=== PATIENT | female | born 1960 | race Caucasian/White ===

== ENCOUNTER → 2017-03-24 | Outpatient (CLI) | payer MEDICARE, OTHER ==
[~2017-03-24] MED LIST: /TIOT18INH INH; /WARF25TA OR; ANTI25TA; ASPI81CH PO; BABY81CH; CLON0.5T PO; COUM1TAB17 PO; CYCL10TA PO; EFFE75CA75 PO; HYDR-3713 PO; HYDR-3716 PO; IBUP200C PO; IBUP400T OR; IBUP800T23 PO; KLON0.5T PO; LASI80TA PO; LOPR50TA; NEUR300C; OMEP20TA7 PO; PANT40TA2 PO; PERC5TAB8 OR; PERCOCET PO; POTA10CA2; RANI300T PO; RANITIDINE PO; SPIR50TA2 PO; TOPA100T8 PO; TYL PO; TYLE167L PO; TYLE650T25 PO; VENL75TA2 PO; VENL75TA3 PO; VICO5TAB; VICODINES TAB PO; ZANT150T; ZOCO10TA PO; [UNRECOGNIZED DRUG - OTHER] INH; flexeril OR; ibuprofen PO; klor con PO; nitrostat SL
--- NOTE | 2017-03-24 15:11 | REP ---
REASON: Tobacco abuse. COMPARISON: CT chest angio 08/29/2009 which is the only prior. The examination was submitted with lung window technique only as per the protocol. There is a minimal somewhat curvilinear and patchy density in the inferior lingula. This is not nodular. There is a 2 mm sized left lower lobe nodule. No other abnormal nodules, masses, or opacities are present. IMPRESSION: Tiny nodule in the left lower lobe as described above. According to the revised Fleischner's Society criteria, this represents a category II nodule for which yearly screening CT of the chest is recommended. Pulmonary consultation is recommended at this time due to the positive finding as per the protocol. There is a minimal patchy density in the inferior lingula likely representing a small area of subsegmental atelectatic change or fibrosis. This too, can be followed in the recommended time span. Signed by Yaya Alvarado DO 03/24/2017 04:14 P
== END ==
LOC: M RAD 13:23
PROVIDERS: ATTEND Family Medicine
DX: Z12.31 Encounter for screening mammogram for malignant neoplasm of breast (principal); Z12.2 Encounter for screening for malignant neoplasm of respiratory organs; F17.210 Nicotine dependence, cigarettes, uncomplicated; R91.1 Solitary pulmonary nodule
CPT/HCPCS: G0202; G0297

== ENCOUNTER → 2017-03-24 | Outpatient (CLI) | payer MEDICARE, OTHER ==
--- NOTE | 2017-03-24 16:52 | REP ---
BILATERAL MAMMOGRAM: Bilateral mammography performed in the MLO and CC projections. Comparison is made with multiple prior exams, most recently 05/12/2012. Scattered fibroglandular elements appear essentially unchanged. Tiny calcifications are seen in the upper outer left breast anteriorly. Other course benign type calcifications are seen bilaterally. IMPRESSION: ACR 0 incomplete. New tiny calcifications in the upper outer aspect of the left breast anteriorly may be related to a skin lesion as they are fairly superficial in location on left MLO views. Recommend magnification tangential views to further evaluate. BI-RADS/ACR category 0 mammogram, incomplete. Additional imaging and/or prior images are needed before a final assessment can be assigned. This mammogram was interpreted with the aid of an FDA-approved computer-aided detection system. The patient states she had a clinical breast exam in 02/2017. The patient letter being requested is M0.
== END ==
LOC: M WHC 14:28
PROVIDERS: ATTEND Family Medicine
DX: Z12.31 Encounter for screening mammogram for malignant neoplasm of breast (principal); R92.8 Other abnormal and inconclusive findings on diagnostic imaging of breast

== ENCOUNTER → 2017-04-12 | Outpatient (CLI) | payer MEDICARE, OTHER ==
--- NOTE | 2017-04-12 11:49 | REP ---
Digital diagnostic left breast unilateral mammography with CAD: History: Screening mammography March 24, 2017 was BIRADS category 0 due to new microcalcifications in the upper outer aspect of the left breast. Comparison is also made with May 12, 2012 prior mammography. Findings: A skin calcification localization sequence of images was acquired in craniocaudal, rolled craniocaudal, and true MLO projection images with an opaque BB marker affixed to the skin at the site of the calcifications. Magnified focal spot compression CC, MLO and true MLO views confirm the presence of a new grouping of calcifications. These occupy a very tight cluster only 3 mm across and are felt to be somewhat coarse. Similar calcifications are visible in 2011 in a different location and subsequent images demonstrate course coalescing benign pattern. Impression: BIRADS category 2 benign left breast imaging. Coarse grouping of benign appearing calcifications identified. These are not in the dermis of but are not felt to be suspicious. Annual screening mammography recommended. BI-RADS/ACR category 2 mammogram. Benign finding(s). Routine annual screening mammography (for women over age 40). This mammogram was interpreted with the aid of an FDA-approved computer-aided detection system. The patient states she had a clinical breast exam in February 2017 The patient letter being requested is M1. Signed by Josh Woods MD 04/12/2017 01:09 P
== END ==
LOC: M RAD 09:49
PROVIDERS: ATTEND Family Medicine
DX: R92.1 Mammographic calcification found on diagnostic imaging of breast (principal)

== ENCOUNTER → 2017-04-28 | Outpatient (CLI) | payer MEDICARE, OTHER ==
[~2017-04-28] VITALS: Ht 162.6 cm; Wt 101.6 kg
[~2017-04-28] MED LIST changes: +BUPR150T5 PO; +CHAN0.5P2 PO; +FLUO10CA9 PO; +HYDR-3719 PO; +LIDOCAINE 2% INJ 100 MG/5 ML SDV (FOR ANES.) As Ordered ONE; +NS 1,000 ML IV ONE; +PROPOFOL 200 MG/20 ML VIAL As Ordered ONE; +TOPI50TA4 PO; +VENL75CA47 PO
--- NOTE | 2017-04-28 13:12 | ROOR ---
Patient Name: Estella Lindsay Procedure Date: 04/28/2017 12:59 PM Date of : 1960 Age: 57 Room: [facility], [facility]IN [facility] Gender: Female Note Status: Finalized Procedure: Upper GI endoscopy Indications: Heartburn Providers: Richi Allen MD Referring MD: Melonie Quiroga MD Requesting Provider: Medicines: Monitored Anesthesia Care Complications: No immediate complications. Procedure: Pre-Anesthesia Assessment: - The heart rate, respiratory rate, oxygen saturations, blood pressure, adequacy of pulmonary ventilation, and response to care were monitored throughout the procedure. The Endoscope was introduced through the mouth, and advanced to the second part of duodenum. The upper GI endoscopy was accomplished without difficulty. The patient tolerated the procedure well. Findings: The Z-line was regular and was found 40 cm from the incisors. No other significant abnormalities were identified in a careful examination of the stomach. The exam of the duodenum was otherwise normal. Impression: - Z-line regular, 40 cm from the incisors. - No specimens collected. - The examination was otherwise normal. Recommendation: - Patient has a contact number available for emergencies. The signs and symptoms of potential delayed complications were discussed with the patient. Return to normal activities tomorrow. Written discharge instructions were provided to the patient. - High fiber diet. - Discharge patient to home. - Follow an antireflux regimen. - Continue present medications. - Return to referring physician. - The findings and recommendations were discussed with the patient's family. Richi Allen MD Richi Allen MD 04/28/2017 1:11:44 PM This report has been signed electronically. Number of Addenda: 0 Note Initiated On: 04/28/2017 12:59 PM Estimated Blood Loss: Estimated blood loss: none.
--- NOTE | 2017-04-28 13:47 | ROOR ---
Patient Name: Estella Lindsay Procedure Date: 04/28/2017 1:00 PM Date of : 1960 Age: 57 Room: [facility] Gender: Female Note Status: Finalized Procedure: Total Colonoscopy to Cecum + Cold Snare Polypectomy Indications: Screening for colorectal malignant neoplasm Providers: Richi Allen MD Referring MD: Melonie Quiroga MD Requesting Provider: Medicines: Monitored Anesthesia Care Complications: No immediate complications. Procedure: Pre-Anesthesia Assessment: - The heart rate, respiratory rate, oxygen saturations, blood pressure, adequacy of pulmonary ventilation, and response to care were monitored throughout the procedure. The Colonoscope was introduced through the anus and advanced to the cecum, identified by appendiceal orifice and ileocecal valve. The colonoscopy was performed without difficulty. The patient tolerated the procedure well. The quality of the bowel preparation was excellent. Findings: The perianal and digital rectal examinations were normal. Non-bleeding internal hemorrhoids were found during retroflexion. The hemorrhoids were small and Grade I (internal hemorrhoids that do not prolapse). Multiple small and large-mouthed diverticula were found in the recto-sigmoid colon, sigmoid colon and descending colon. Two sessile polyps were found at 50 cm proximal to the anus. The polyps were medium in size. These polyps were removed with a cold snare. Resection and retrieval were complete. The exam was otherwise without abnormality on direct and retroflexion views. Impression: - Non-bleeding internal hemorrhoids. - Diverticulosis in the recto-sigmoid colon, in the sigmoid colon and in the descending colon. - Two medium polyps at 50 cm proximal to the anus, removed with a cold snare. Resected and retrieved. - The examination was otherwise normal on direct and retroflexion views. - The exam was otherwise normal to the cecum. Recommendation: - Patient has a contact number available for emergencies. The signs and symptoms of potential delayed complications were discussed with the patient. Return to normal activities tomorrow. Written discharge instructions were provided to the patient. - High fiber diet. - Discharge patient to home. - Continue present medications. - Await pathology results. - Telephone GI clinic for pathology results in 1 week. - Repeat colonoscopy for surveillance based on pathology results. - Return to referring physician. Richi Allen MD Richi Allen MD 04/28/2017 1:46:42 PM This report has been signed electronically. Number of Addenda: 0 Note Initiated On: 04/28/2017 1:00 PM Estimated Blood Loss: Estimated blood loss: none.
[2017-04-28 14:07] VITALS: BP 143/75
== END | disposition home or self-care (01) ==
LOC: M OPP 12:25
PROVIDERS: ATTEND Internal Medicine Gastroenterology
DX: Z12.11 Encounter for screening for malignant neoplasm of colon (principal); D12.5 Benign neoplasm of sigmoid colon; K57.30 Diverticulosis of large intestine without perforation or abscess without bleeding; K64.0 First degree hemorrhoids; Z86.010 Personal history of colon polyps; R12 Heartburn; R94.31 Abnormal electrocardiogram [ECG] [EKG]; K44.9 Diaphragmatic hernia without obstruction or gangrene; K82.9 Disease of gallbladder, unspecified; K21.9 Gastro-esophageal reflux disease without esophagitis; Z87.19 Personal history of other diseases of the digestive system; M19.90 Unspecified osteoarthritis, unspecified site; M54.9 Dorsalgia, unspecified; F41.9 Anxiety disorder, unspecified; G43.909 Migraine, unspecified, not intractable, without status migrainosus; Z78.0 Asymptomatic menopausal state; J44.9 Chronic obstructive pulmonary disease, unspecified; G47.30 Sleep apnea, unspecified; R32 Unspecified urinary incontinence; F17.210 Nicotine dependence, cigarettes, uncomplicated; Z88.1 Allergy status to other antibiotic agents; Z91.041 Radiographic dye allergy status; Z88.3 Allergy status to other anti-infective agents; Z91.013 Allergy to seafood; Z79.899 Other long term (current) drug therapy

== ENCOUNTER → 2017-05-05 | Outpatient (REF) | payer MEDICARE, OTHER ==
[~2017-05-05] MED LIST changes: +IBUP1TAB7 PO; -IBUP200C PO; +IBUP200C10 PO; -IBUP800T23 PO; -LIDOCAINE 2% INJ 100 MG/5 ML SDV (FOR ANES.) As Ordered ONE; -NS 1,000 ML IV ONE; -PROPOFOL 200 MG/20 ML VIAL As Ordered ONE; +TOPA100T12 PO; -TOPA100T8 PO; -TOPI50TA4 PO; +TOPI50TA9 PO
[2017-05-05 16:20] LABS: ALBUMIN 3.4 GM/DL (3.2-5.2); ALKALINE PHOSPHATASE 93 U/L (45-117); ALT/SGPT 25 U/L (12-78); ANION GAP 8 MEQ/L (8-16); AST/SGOT 18 U/L (15-37); BILIRUBIN,TOTAL 0.5 MG/DL (0.2-1.0); BLOOD UREA NITROGEN 9 MG/DL (7-18); CALCIUM LEVEL 8.8 MG/DL (8.5-10.1); CARBON DIOXIDE LEVEL 28 MEQ/L (21-32); CHLORIDE LEVEL 102 MEQ/L (98-107); CHOLESTEROL LEVEL 230 MG/DL (<200); CREATININE FOR GFR 0.81 MG/DL (0.55-1.02); GLOMERULAR FILTRATION RATE > 60.0 (>51); GLUCOSE, FASTING 140 MG/DL (70-105); POTASSIUM SERUM 3.2 MEQ/L (3.5-5.1); SODIUM LEVEL 138 MEQ/L (136-145); TOTAL PROTEIN 6.8 GM/DL (6.4-8.2); TRIGLYCERIDES LEVEL 210 MG/DL (<150)
== END ==
LOC: M LABDRAW1 15:47
PROVIDERS: ATTEND Family Medicine
DX: E66.01 Morbid (severe) obesity due to excess calories (principal); R53.83 Other fatigue; Z79.899 Other long term (current) drug therapy
CPT/HCPCS: 36415; 80053; 80061; 82306; 84443; G0463

== ENCOUNTER → 2017-05-13 | Outpatient (REF) | payer MEDICARE, OTHER ==
[~2017-05-13] MED LIST changes: -IBUP1TAB7 PO; +IBUP200C PO; -IBUP200C10 PO; +IBUP800T23 PO; -TOPA100T12 PO; +TOPA100T8 PO; +TOPI50TA4 PO; -TOPI50TA9 PO
[2017-05-13 16:02] LABS: BASO # 0.1 K/mm3 (0.0-0.2); BASO % 0.6 % (0.0-1.0); EOS # 0.1 K/mm3 (0.0-0.50); EOS % 1.1 % (0.0-3.0); LARGE UNSTAINED CELL # 0.1 K/mm3 (0.0-0.4); LARGE UNSTAINED CELL % 1.1 % (0.0-4.0); LYMPH % 36.2 % (24.0-44.0); MEAN CORPUSCULAR HEMOGLOBIN 32.1 pg (27.0-33.0); MEAN CORPUSCULAR VOLUME 94.5 fl (80.0-96.0); MONO # 0.5 K/mm3 (0.0-0.8); MONO % 4.3 % (0.0-5.0); NEUTROPHILS % 56.6 % (36.0-66.0); PLATELET COUNT, AUTOMATED 197 k/mm3 (150-450); RED CELL DISTRIBUTION WIDTH 13.6 % (11.5-14.5); WHITE BLOOD COUNT 10.6 K/mm3 (4.0-10.0)
== END ==
LOC: M SFHCPLAZ 13:35
PROVIDERS: ATTEND Family Medicine
DX: D72.829 Elevated white blood cell count, unspecified (principal); R73.09 Other abnormal glucose

== ENCOUNTER → 2017-05-20 | Outpatient (REF) | payer MEDICARE, OTHER ==
[~2017-05-20] MED LIST changes: +IBUP1TAB7 PO; -IBUP200C PO; +IBUP200C10 PO; -IBUP800T23 PO; +TOPA100T12 PO; -TOPA100T8 PO; -TOPI50TA4 PO; +TOPI50TA9 PO
== END ==
LOC: M SFHCPLAZ 17:25
PROVIDERS: ATTEND Family Medicine
DX: N30.01 Acute cystitis with hematuria (principal)
CPT/HCPCS: 81002; 87086; G0463

== ENCOUNTER → 2017-07-15 | Outpatient (REF) | payer MEDICARE, OTHER ==
[2017-07-15 12:17] LABS: BASO # 0.1 K/mm3 (0.0-0.2); BASO % 0.7 % (0.0-1.0); EOS # 0.1 K/mm3 (0.0-0.50); EOS % 0.7 % (0.0-3.0); LARGE UNSTAINED CELL # 0.1 K/mm3 (0.0-0.4); LYMPH # 2.5 K/mm3 (1.5-4.5); MEAN CORPUSCULAR HEMOGLOBIN 31.6 pg (27.0-33.0); MEAN CORPUSCULAR HGB CONC 33.1 g/dl (32.0-36.5); MEAN CORPUSCULAR VOLUME 95.4 fl (80.0-96.0); MONO # 0.4 K/mm3 (0.0-0.8); MONO % 5.1 % (0.0-5.0); NEUTROPHILS # 5.4 K/mm3 (1.8-7.7); NEUTROPHILS % 63.5 % (36.0-66.0); PLATELET COUNT, AUTOMATED 226 k/mm3 (150-450); RED CELL DISTRIBUTION WIDTH 12.9 % (11.5-14.5); WHITE BLOOD COUNT 8.5 K/mm3 (4.0-10.0)
== END ==
LOC: M SFHCPLAZ 09:23
PROVIDERS: ATTEND Family Medicine
DX: D72.829 Elevated white blood cell count, unspecified (principal)

== ENCOUNTER → 2017-08-23 | Outpatient (REF) | payer MEDICARE, OTHER | LOC: M SFHCPLAZ 15:14 | PROVIDERS: ATTEND Family Medicine | DX: E11.9 Type 2 diabetes mellitus without complications (principal) | CPT/HCPCS: 82043; 83036; G0463 ==

== ENCOUNTER → 2017-11-29 | Outpatient (REF) | payer MEDICARE, OTHER ==
[2017-11-29 18:36] LABS: ANION GAP 6 MEQ/L (8-16); BLOOD UREA NITROGEN 10 MG/DL (7-18); CALCIUM LEVEL 8.9 MG/DL (8.5-10.1); CARBON DIOXIDE LEVEL 29 MEQ/L (21-32); CHLORIDE LEVEL 108 MEQ/L (98-107); CREATININE FOR GFR 0.73 MG/DL (0.55-1.02); GLOMERULAR FILTRATION RATE > 60.0 (>51); GLUCOSE, FASTING 110 MG/DL (70-105); POTASSIUM SERUM 4.1 MEQ/L (3.5-5.1); SODIUM LEVEL 143 MEQ/L (136-145)
[2017-11-29 20:04] LABS: ESTIMATED AVERAGE GLUCOSE 128 MG/DL (60-110); HEMOGLOBIN A1c 6.1 %
== END ==
LOC: M SFHCPLAZ 14:37
DX: E11.9 Type 2 diabetes mellitus without complications (principal); E87.6 Hypokalemia
CPT/HCPCS: 83036

== ENCOUNTER → 2018-02-22 | Outpatient (CLI) | payer MEDICARE, OTHER | LOC: M RAD 07:01 | DX: R10.9 Unspecified abdominal pain (principal); Z90.49 Acquired absence of other specified parts of digestive tract; Z90.710 Acquired absence of both cervix and uterus; R93.49 Abnormal radiologic findings on diagnostic imaging of other urinary organs | CPT/HCPCS: 74176 ==

== ENCOUNTER → 2018-04-28 | Outpatient (CLI) | payer MEDICARE, OTHER | LOC: M RAD 09:54 | DX: Z12.31 Encounter for screening mammogram for malignant neoplasm of breast (principal) | CPT/HCPCS: 77067 ==

== ENCOUNTER → 2018-05-30 | Outpatient (REF) | payer MEDICARE, OTHER ==
[2018-05-30 19:15] LABS: ANION GAP 9 MEQ/L (8-16); BLOOD UREA NITROGEN 10 MG/DL (7-18); CARBON DIOXIDE LEVEL 29 MEQ/L (21-32); CHLORIDE LEVEL 104 MEQ/L (98-107); CREATININE FOR GFR 0.85 MG/DL (0.55-1.30); GLOMERULAR FILTRATION RATE > 60.0 (>51); GLUCOSE, FASTING 123 MG/DL (70-100); POTASSIUM SERUM 3.9 MEQ/L (3.5-5.1); SODIUM LEVEL 142 MEQ/L (136-145)
[2018-05-30 19:21] LABS: ESTIMATED AVERAGE GLUCOSE 146 MG/DL (60-110); HEMOGLOBIN A1c 6.7 %
[2018-05-30 19:55] LABS: CREATININE, URINE 81.4 MG/DL; MALB URINE SIEMENS 5.3 MG/L; MAU/CREAT RATIO 6.5 MCG/MG (0.0-30.0)
== END ==
LOC: M SFHCPLAZ 15:47
DX: E11.9 Type 2 diabetes mellitus without complications (principal); E87.6 Hypokalemia
CPT/HCPCS: 83036

== ENCOUNTER → 2018-11-30 | Outpatient (REF) | payer MEDICARE, OTHER ==
[~2018-11-30] MED LIST changes: -CHAN0.5P2 PO; +CHAN0.5P3 PO; -CLON0.5T PO; +CLON0.5T8 PO; +EFFE75CA2 PO; -EFFE75CA75 PO; -IBUP200C10 PO; +IBUP200C25 PO; -PANT40TA2 PO; +PANT40TA3 PO; -SPIR50TA2 PO; +SPIR50TA4 PO
[2018-11-30 13:40] LABS: ALBUMIN 3.1 GM/DL (3.2-5.2); ALT/SGPT 19 U/L (12-78); BILIRUBIN,TOTAL 0.3 MG/DL (0.2-1.0); BLOOD UREA NITROGEN 12 MG/DL (7-18); CALCIUM LEVEL 8.4 MG/DL (8.5-10.1); CARBON DIOXIDE LEVEL 25 MEQ/L (21-32); CHLORIDE LEVEL 105 MEQ/L (98-107); CREATININE FOR GFR 0.83 MG/DL (0.55-1.30); GLOMERULAR FILTRATION RATE > 60.0 (>51); GLUCOSE, FASTING 200 MG/DL (70-100); POTASSIUM SERUM 3.2 MEQ/L (3.5-5.1); SODIUM LEVEL 141 MEQ/L (136-145); TOTAL PROTEIN 6.7 GM/DL (6.4-8.2)
[2018-11-30 13:49] LABS: TOTAL 25(OH) VITAMIN D 58.4 NG/ML (30.0-100.0)
[2018-11-30 14:21] LABS: HEMOGLOBIN A1c 7.8 %
== END ==
LOC: M SFHCPLAZ 11:10
PROVIDERS: ATTEND Family Medicine
DX: E11.9 Type 2 diabetes mellitus without complications (principal); E66.01 Morbid (severe) obesity due to excess calories; E87.6 Hypokalemia; E55.9 Vitamin D deficiency, unspecified

== ENCOUNTER → 2018-11-30 | Outpatient (REF) | payer MEDICARE, OTHER ==
[2018-11-30 13:10] LABS: BASO # 0.1 10^3/uL (0.0-0.2); BASO % 0.6 % (0.0-1.0); EOS # 0.1 10^3/uL (0.0-0.50); EOS % 0.9 % (0.0-3.0); HEMATOCRIT 42.4 % (36.0-47.0); LYMPH # 2.7 10^3/uL (1.5-4.5); LYMPH % 29.7 % (24.0-44.0); MEAN CORPUSCULAR HEMOGLOBIN 30.6 pg (27.0-33.0); MEAN CORPUSCULAR VOLUME 92.8 fl (80.0-96.0); MONO # 0.5 10^3/uL (0.0-0.8); MONO % 5.8 % (0.0-5.0); NEUTROPHILS # 5.8 10^3/uL (1.8-7.7); NEUTROPHILS % 62.5 % (36.0-66.0); PLATELET COUNT, AUTOMATED 218 10^3/uL (150-450); RED BLOOD COUNT 4.57 10^6/uL (4.00-5.40); WHITE BLOOD COUNT 9.2 10^3/uL (4.0-10.0)
[2018-11-30 13:41] LABS: ALBUMIN 3.1 GM/DL (3.2-5.2); ALT/SGPT 22 U/L (12-78); BILIRUBIN,TOTAL 0.3 MG/DL (0.2-1.0); BLOOD UREA NITROGEN 11 MG/DL (7-18); CALCIUM LEVEL 8.4 MG/DL (8.5-10.1); CARBON DIOXIDE LEVEL 24 MEQ/L (21-32); CHLORIDE LEVEL 105 MEQ/L (98-107); CREATININE FOR GFR 0.84 MG/DL (0.55-1.30); GLOMERULAR FILTRATION RATE > 60.0 (>51); GLUCOSE, FASTING 203 MG/DL (70-100); POTASSIUM SERUM 3.1 MEQ/L (3.5-5.1); SODIUM LEVEL 142 MEQ/L (136-145); TOTAL PROTEIN 6.7 GM/DL (6.4-8.2)
== END ==
LOC: M LABDRAWP 11:19
PROVIDERS: ATTEND Physician Assistant
DX: N32.81 Overactive bladder (principal); E11.9 Type 2 diabetes mellitus without complications; E55.9 Vitamin D deficiency, unspecified; F17.200 Nicotine dependence, unspecified, uncomplicated
CPT/HCPCS: 36415; 80053; 82306; 83036; 85025; 99406; G0463

== ENCOUNTER → 2018-12-19 | Outpatient (REF) | payer MEDICARE, OTHER ==
[~2018-12-19] MED LIST changes: +ASPI1TAB PO; +METF500T4 PO; +POTA10TA16 PO; +VITA50005 PO
[2018-12-19 14:14] LABS: BLOOD UREA NITROGEN 10 MG/DL (7-18); CALCIUM LEVEL 8.7 MG/DL (8.5-10.1); CARBON DIOXIDE LEVEL 24 MEQ/L (21-32); CHLORIDE LEVEL 105 MEQ/L (98-107); CREATININE FOR GFR 0.84 MG/DL (0.55-1.30); GLOMERULAR FILTRATION RATE > 60.0 (>51); GLUCOSE, FASTING 204 MG/DL (70-100); POTASSIUM SERUM 3.9 MEQ/L (3.5-5.1); SODIUM LEVEL 139 MEQ/L (136-145)
== END ==
LOC: M SFHCPLAZ 11:55
PROVIDERS: ATTEND Family Medicine
DX: E87.6 Hypokalemia (principal)
CPT/HCPCS: 36415; 80048; G0463

== ENCOUNTER 2019-01-17 11:10 | Day surgery (SDC) | payer MEDICARE, OTHER ==
[~2019-01-17] VITALS: Ht 163.8 cm; Wt 100.7 kg
[~2019-01-17 11:10] MED LIST changes: +BACITRACIN OINT 30GM As Ordered ONE; +EPINEPHrine INJ 1 MG/ML 1ML AMP As Ordered ONE; +LIDOCAINE W/EPINEPHRINE 1% 20ML VIAL As Ordered ONE; +METHYLENE BLUE 0.5% (5MG/ML) 10 ML AMP (PROVAYBLUE)(Q9968 PER 1MG) As Ordered ONE
[2019-01-17] MEDS ORDERED: LR 1,000 ML IV ONE (12:00)
[2019-01-17] MEDS ORDERED: MIDAZOLAM INJ 2 MG/2 ML VIAL (J2250) As Ordered ONE (14:08)
[2019-01-17] MEDS ORDERED: PROPOFOL 200 MG/20 ML VIAL As Ordered ONE (14:08)
[2019-01-17] MEDS ORDERED: fentaNYL 100 MCG/2 ML INJECTION (J3010) As Ordered ONE (14:08)
[2019-01-17 14:55] VITALS: BP 112/60
[2019-01-17] MEDS ORDERED: fentaNYL 100 MCG/2 ML INJECTION (J3010) IV PRN (15:00)
[2019-01-17] MEDS ORDERED: ONDANSETRON 4MG/2ML VIAL (J2405) IV PRN (15:00)
[2019-01-17] MEDS ORDERED: PERCOCET 5MG/325MG TAB PO PRN (15:00)
[2019-01-17] MEDS ORDERED: LR 1,000 ML IV SCH (15:00)
--- NOTE | 2019-02-14 00:29 | RO ---
DATE OF PROCEDURE: 01/17/2019 PREPROCEDURE DIAGNOSIS: Nasal vestibular lesion. POSTPROCEDURE DIAGNOSIS: Nasal vestibular lesion, right-sided. PROCEDURE: SURGEON: Tolu Espino MD LEAD ELECTRICAL ENGINEER: ANESTHESIA: INDICATIONS: This is a 58-year-old who has had a nonhealing ulcer of the right nasal vestibule along the floor of the nose. It had failed to heal with conservative measures. It was elected to excise the area for tissue diagnosis as well as therapy. DESCRIPTION OF PROCEDURE: Satisfactory intravenous sedation was given. The nose was prepped and draped and 0.50% lidocaine with 1:100,000 epinephrine used to inject into the nasal vestibular area along the floor of the nose. With nasal speculum for exposure, a #15 blade was used to make an elliptical incision around a fissure-type lesion that seemed to be both on the skin of the vestibule and the mucosa. Suction cautery was used for hemostasis, and then two #3-0 chromic sutures were used to close the elliptical incision which had been made. The tissue specimen was sent for permanent section. Ointment was applied to the nostril, and she was then awakened, extubated and sent to recovery in satisfactory condition.
== END 2019-01-17 15:01 | disposition home or self-care (01) ==
LOC: M SDC 11:10
PROVIDERS: ATTEND Specialist
DX: J34.89 Other specified disorders of nose and nasal sinuses (principal); E11.9 Type 2 diabetes mellitus without complications; K57.32 Diverticulitis of large intestine without perforation or abscess without bleeding; M47.816 Spondylosis without myelopathy or radiculopathy, lumbar region; G47.33 Obstructive sleep apnea (adult) (pediatric); R94.31 Abnormal electrocardiogram [ECG] [EKG]; R07.9 Chest pain, unspecified; E78.00 Pure hypercholesterolemia, unspecified; K44.9 Diaphragmatic hernia without obstruction or gangrene; K21.9 Gastro-esophageal reflux disease without esophagitis; M15.0 Primary generalized (osteo)arthritis; R06.02 Shortness of breath; F41.0 Panic disorder [episodic paroxysmal anxiety]; F32.9 Major depressive disorder, single episode, unspecified; G43.909 Migraine, unspecified, not intractable, without status migrainosus; J44.9 Chronic obstructive pulmonary disease, unspecified; R32 Unspecified urinary incontinence; T88.59XD Other complications of anesthesia, subsequent encounter; Z88.1 Allergy status to other antibiotic agents; Z91.041 Radiographic dye allergy status; Z79.899 Other long term (current) drug therapy; Z79.82 Long term (current) use of aspirin; Z79.84 Long term (current) use of oral hypoglycemic drugs; Z72.0 Tobacco use; Z86.010 Personal history of colon polyps; Z86.14 Personal history of Methicillin resistant Staphylococcus aureus infection; Z90.710 Acquired absence of both cervix and uterus; Z98.51 Tubal ligation status; Z96.653 Presence of artificial knee joint, bilateral
CPT/HCPCS: 30117; 88305; J2250; J3010

== ENCOUNTER → 2019-01-24 | Outpatient (REF) | payer MEDICARE, OTHER ==
[~2019-01-24] MED LIST changes: -BACITRACIN OINT 30GM As Ordered ONE; -EPINEPHrine INJ 1 MG/ML 1ML AMP As Ordered ONE; -LIDOCAINE W/EPINEPHRINE 1% 20ML VIAL As Ordered ONE; -METHYLENE BLUE 0.5% (5MG/ML) 10 ML AMP (PROVAYBLUE)(Q9968 PER 1MG) As Ordered ONE
[2019-01-24 16:11] LABS: POTASSIUM RANDOM URINE 59.4 MEQ/L
[2019-01-24 16:14] LABS: BLOOD UREA NITROGEN 14 MG/DL (7-18); CALCIUM LEVEL 8.7 MG/DL (8.5-10.1); CARBON DIOXIDE LEVEL 29 MEQ/L (21-32); CHLORIDE LEVEL 103 MEQ/L (98-107); CREATININE FOR GFR 0.72 MG/DL (0.55-1.30); GLOMERULAR FILTRATION RATE > 60.0 (>51); GLUCOSE, FASTING 139 MG/DL (70-100); POTASSIUM SERUM 3.8 MEQ/L (3.5-5.1); SODIUM LEVEL 140 MEQ/L (136-145)
== END ==
LOC: M SFHCPLAZ 13:42
PROVIDERS: ATTEND Family Medicine
DX: E87.6 Hypokalemia (principal)
CPT/HCPCS: 36415; 80048; 82570; 84133; G0463

== ENCOUNTER → 2019-01-27 | Outpatient (REF) | payer MEDICARE, OTHER | LOC: M SFHCPLAZ 15:03 | PROVIDERS: ATTEND Family Medicine | DX: Z53.9 Procedure and treatment not carried out, unspecified reason (principal); E87.6 Hypokalemia ==

== ENCOUNTER → 2019-03-15 | Outpatient (CLI) | payer MEDICARE, OTHER ==
[~2019-03-15] MED LIST changes: -/TIOT18INH INH; -/WARF25TA OR; -ASPI1TAB PO; -ASPI81CH PO; +ASPI81CH49 PO; +ASPI81TA26 PO; +COUM1TAB18 OR; +SPIR1CAP INH; +VENL-65 PO; -VENL75TA3 PO
== END ==
LOC: M LAB 15:04
PROVIDERS: ATTEND Family Medicine
DX: E11.9 Type 2 diabetes mellitus without complications (principal); E87.6 Hypokalemia

== ENCOUNTER → 2019-03-15 | Outpatient (REF) | payer MEDICARE, OTHER ==
[2019-03-21 14:13] LABS: HPV HYBRID CAPTURE II Negative (Negative)
== END ==
LOC: M LAB REF 13:29
PROVIDERS: ATTEND Obstetrics & Gynecology
DX: Z12.72 Encounter for screening for malignant neoplasm of vagina (principal)
CPT/HCPCS: 87624; G0123

== ENCOUNTER → 2019-04-21 | Outpatient (CLI) | payer MEDICARE, OTHER ==
--- NOTE | 2019-04-21 15:01 | REP ---
Clinical: Pelvic and perineal pain . Technique: Transabdominal pelvic ultrasound followed by transvaginal examination for better evaluation of the endometrium and adnexa with color Doppler evaluation of the ovaries. Findings: Bladder is unremarkable and measures 8.6 x 6.3 x 4.5 cm . Evidence of prior hysterectomy. Bilateral ovaries are normal in appearance and vascularity without evidence for torsion. Right ovary measures 2.7 x 1.1 x 1.3 cm ; R I = 0.66 . Left ovary measures 2.2 x 1.7 x 1.4 cm with 8 mm simple cyst ; R I = 0.52 . No pelvic fluid or adnexal mass lesion . Impression: 1. Evidence of prior hysterectomy without free fluid or mass lesion in the pelvis. 2. Ovaries are relatively normal and without torsion. Small calcifications are chronic and insignificant. A 8 mm simple cyst noted in the left ovary Electronically Signed by Kevin Boss MD 04/21/2019 02:52 P
== END ==
LOC: M RAD 12:31
PROVIDERS: ATTEND Obstetrics & Gynecology
DX: R10.2 Pelvic and perineal pain (principal); N83.201 Unspecified ovarian cyst, right side; Z90.710 Acquired absence of both cervix and uterus

== ENCOUNTER → 2019-05-23 | Outpatient (REF) | payer MEDICARE, OTHER ==
[2019-05-23 18:40] LABS: ALBUMIN 3.3 GM/DL (3.2-5.2); ALT/SGPT 25 U/L (12-78); BILIRUBIN,TOTAL 0.2 MG/DL (0.2-1.0); BLOOD UREA NITROGEN 10 MG/DL (7-18); CALCIUM LEVEL 9.2 MG/DL (8.5-10.1); CARBON DIOXIDE LEVEL 27 MEQ/L (21-32); CHLORIDE LEVEL 107 MEQ/L (98-107); CREATININE FOR GFR 0.86 MG/DL (0.55-1.30); GLOMERULAR FILTRATION RATE > 60.0 (>51); GLUCOSE, FASTING 125 MG/DL (70-100); POTASSIUM SERUM 3.6 MEQ/L (3.5-5.1); SODIUM LEVEL 141 MEQ/L (136-145); TOTAL PROTEIN 7.4 GM/DL (6.4-8.2)
[2019-05-23 19:11] LABS: BASO # 0.1 10^3/uL (0.0-0.2); BASO % 0.6 % (0.0-1.0); EOS # 0.1 10^3/uL (0.0-0.50); EOS % 0.9 % (0.0-3.0); HEMOGLOBIN 14.6 g/dl (12.0-15.5); LYMPH # 3.3 10^3/uL (1.5-4.5); MEAN CORPUSCULAR HEMOGLOBIN 31.5 pg (27.0-33.0); MEAN CORPUSCULAR HGB CONC 31.7 g/dl (32.0-36.5); MEAN CORPUSCULAR VOLUME 99.1 fl (80.0-96.0); MONO # 0.8 10^3/uL (0.0-0.8); NEUTROPHILS # 8.4 10^3/uL (1.8-7.7); NEUTROPHILS % 65.6 % (36.0-66.0); PLATELET COUNT, AUTOMATED 250 10^3/uL (150-450); RED BLOOD COUNT 4.64 10^6/uL (4.00-5.40); WHITE BLOOD COUNT 12.8 10^3/uL (4.0-10.0)
== END ==
LOC: M SFHCPLAZ 15:22
PROVIDERS: ATTEND Family Medicine
DX: R10.32 Left lower quadrant pain (principal)

== ENCOUNTER → 2019-05-29 | Outpatient (CLI) | payer MEDICARE, OTHER ==
--- NOTE | 2019-05-29 13:31 | REPMRS ---
Patient History The patient states she has not had a clinical breast exam in over a year. No known family history of cancer. Benign lumpectomy of the left breast. 3D TOMOSYNTHESIS WAS PERFORMED. [facility] Digital Mammo Screening Bilat: May 29, 2019 - Exam #: [id number] Bilateral CC and MLO view(s) were taken. Technologist: Alexandrea Salvador, Technologist Prior study comparison: April 28, 2018, bilateral digital mammo screening bilat performed at [facility]. April 12, 2017, left breast digital mammo diagnostic unilateral performed at [facility]. FINDINGS: There are scattered fibroglandular densities. There has been no change in the appearance of the mammogram from the prior studies. There is a mild amount of residual fibroglandular tissue which is fairly symmetric. There is no interval development of dominant mass, architectural distortion, or clustered microcalcification suggestive of malignancy. Assessment: BI-RADS/ACR category 1 mammogram. Negative Mammogram. Recommendation Routine screening mammogram in 1 year (for women over age 40). This mammogram was interpreted with the aid of an FDA-approved computer-aided dectection system. Electronically Signed By: Andrey Farooq MD 05/29/19 [id number]
--- NOTE | 2019-05-29 19:37 | REP ---
LOW DOSE LUNG SCREENING CT: Low dose lung screening CT performed in the axial plane. No suspicious nodule is seen bilaterally. Linear fibrotic changes are seen in the left upper lobe. No consolidation is seen. Heart is not significantly enlarged. There are degenerative changes of the spine. IMPRESSION: Lung RADS category 1 negative low dose lung screening CT. Followup is recommended in one year. Electronically Signed by Andrey Farooq MD 05/30/2019 11:14 A
== END ==
LOC: M RAD 12:43
PROVIDERS: ATTEND Family Medicine
DX: Z12.31 Encounter for screening mammogram for malignant neoplasm of breast (principal); F17.210 Nicotine dependence, cigarettes, uncomplicated
CPT/HCPCS: 77063; 77067; G0297

== ENCOUNTER → 2019-05-30 | Outpatient (CLI) | payer MEDICARE, OTHER ==
[~2019-05-30] MED LIST changes: +GASTROGRAFIN SOLUTION 30ML (Q9963) As Ordered ONE; +ISOVUE-370 76% 100ML VIAL (Q9967) As Ordered ONE
--- NOTE | 2019-05-30 19:50 | REP ---
CT abdomen and pelvis with IV and oral contrast: History: Left lower quadrant pain. Comparison CT study February 22, 2018. CT contrast dose: 100 ml of intravenous Isovue [address] findings: Preliminary digital leather products supervisor radiograph shows right upper quadrant and right lower quadrant surgical clips. The patient gives a history of appendectomy and cholecystectomy. Bowel gas pattern is normal. There is mild linear fibrosis in the left lower lobe. Lung bases are otherwise clear. There is fatty infiltration of the liver with no focal liver lesions seen. The spleen is normal in size and homogeneous in texture. The left adrenal gland is diffusely hypertrophied. Remains adreniform shape and is unchanged from the February 22, 2018 study. It has relatively low density. This may be benign hyperplasia versus adenoma. There is less prominent similar stable changes in the right adrenal gland. No pancreatic abnormality is observed. No retroperitoneal mass or adenopathy is seen. There are scattered normal-sized stable periaortic lymph nodes. The kidneys enhance symmetrically and are morphologically intact. Small and large intestinal bowel loops are unremarkable in the abdomen and pelvis. No abdominal wall defect is seen. The uterus is surgically absent. There are calcifications along the posterior wall of the urinary bladder and at its base which appear to be outside of the urinary bladder. Indeed these are unchanged from the comparison CT study February 22, 2018. No bony destructive lesion is seen. Impression: No acute intra-abdominal abnormality. Post cholecystectomy and hysterectomy. Stable left adrenal hyperplasia. Fatty infiltration of the liver. Electronically Signed by Josh Woods MD 05/30/2019 08:13 P
== END ==
LOC: M RAD 13:47
PROVIDERS: ATTEND Family Medicine
DX: R10.32 Left lower quadrant pain (principal); K76.0 Fatty (change of) liver, not elsewhere classified; E27.8 Other specified disorders of adrenal gland
CPT/HCPCS: 74177; Q9963; Q9967

== ENCOUNTER → 2019-06-05 | Outpatient (CLI) | payer MEDICARE, OTHER ==
[~2019-06-05] MED LIST changes: +CLON0.5T2 PO; -CLON0.5T8 PO; -GASTROGRAFIN SOLUTION 30ML (Q9963) As Ordered ONE; -ISOVUE-370 76% 100ML VIAL (Q9967) As Ordered ONE; +METF-791 PO; -METF500T4 PO
[2019-06-05 18:18] LABS: BASO # 0.1 10^3/uL (0.0-0.2); BASO % 0.6 % (0.0-1.0); EOS # 0.1 10^3/uL (0.0-0.50); EOS % 0.6 % (0.0-3.0); HEMATOCRIT 46.1 % (36.0-47.0); HEMOGLOBIN 14.8 g/dl (12.0-15.5); LYMPH # 3.2 10^3/uL (1.5-4.5); LYMPH % 31.9 % (24.0-44.0); MEAN CORPUSCULAR HEMOGLOBIN 31.6 pg (27.0-33.0); MEAN CORPUSCULAR HGB CONC 32.1 g/dl (32.0-36.5); MEAN CORPUSCULAR VOLUME 98.5 fl (80.0-96.0); MONO # 0.6 10^3/uL (0.0-0.8); NEUTROPHILS # 6.1 10^3/uL (1.8-7.7); NEUTROPHILS % 60.3 % (36.0-66.0); PLATELET COUNT, AUTOMATED 214 10^3/uL (150-450); RED BLOOD COUNT 4.68 10^6/uL (4.00-5.40); WHITE BLOOD COUNT 10.2 10^3/uL (4.0-10.0)
== END ==
LOC: M LAB 17:23
PROVIDERS: ATTEND Family Medicine
DX: D72.829 Elevated white blood cell count, unspecified (principal)

== ENCOUNTER 2019-07-25 15:06 | Inpatient (IN) | payer MEDICARE, OTHER ==
[~2019-07-25] VITALS: Ht 162.6 cm; Wt 101.7 kg
[~2019-07-25 15:06] MED LIST changes: -CLON0.5T2 PO; +CLON0.5T8 PO; -METF-791 PO; +METF500T4 PO
--- NOTE | 2019-07-25 16:36 | REP ---
Clinical: Trauma . Comparison: 12/13/2014 . Findings: The ventricles, sulci, and cisterns are normal in position and appearance. Farooq-white differentiation is maintained. No acute intracranial hemorrhage, mass/mass effect, pathology or trauma/injury. No evidence for acute infarction. No extra-axial fluid collection. Calvarium is intact. Paranasal sinuses and mastoid air cells are clear. Impression: Normal noncontrast head CT. No evidence for acute intracranial pathology or trauma/injury. Electronically Signed by Kevin Boss MD 07/25/2019 04:28 P
--- NOTE | 2019-07-25 16:38 | REP ---
Clinical: Trauma . Technique: Axial noncontrast images from the skull base to the thoracic inlet with coronal and sagittal re-formations Findings: Normal alignment is maintained. Moderate multilevel degenerative disc osteophyte complexes are appreciated. Cervical vertebral bodies including transverse processes and spinous processes are intact and there is no evidence for acute fracture / compression injury or subluxation. Spinal canal is patent. Posterior elements are intact. Paravertebral soft tissues are normal. Impression: 1. Moderate multilevel degenerative spondylosis and straightening of normal lordosis. 2. No evidence for acute pathology or trauma/injury. Electronically Signed by Kevin Boss MD 07/25/2019 04:30 P
--- NOTE | 2019-07-25 16:59 | REP ---
RIGHT KNEE, FOUR VIEWS: Four views of the right knee are performed. There is no acute fracture or dislocation. Total knee prosthesis in place and in good position with no abnormal adjacent lucency in the bone. IMPRESSION: No acute fracture or dislocation. Electronically Signed by Andrey Farooq MD 07/25/2019 05:00 P
--- NOTE | 2019-07-25 17:01 | REP ---
CHEST, SINGLE VIEW: Single view of the chest is performed. There is no acute infiltrate or pulmonary edema. There is minor bibasilar fibroatelectatic change, stable, compared to the prior study 12/03/2015. The heart is not significantly enlarged. Mediastinal silhouette is unchanged. There are degenerative changes of the spine. IMPRESSION: No acute infiltrate. Electronically Signed by Andrey Farooq MD 07/26/2019 09:52 A
[2019-07-25 17:10] LABS: BASO # 0.1 10^3/uL (0.0-0.2); BASO % 0.5 % (0.0-1.0); EOS % 0.2 % (0.0-3.0); HEMATOCRIT 46.4 % (36.0-47.0); HEMOGLOBIN 15.1 g/dl (12.0-15.5); LYMPH # 3.5 10^3/uL (1.5-5.0); LYMPH % 22.6 % (24.0-44.0); MEAN CORPUSCULAR HEMOGLOBIN 30.6 pg (27.0-33.0); MEAN CORPUSCULAR HGB CONC 32.5 g/dl (32.0-36.5); MEAN CORPUSCULAR VOLUME 94.1 fl (80.0-96.0); MONO # 0.8 10^3/uL (0.0-0.8); MONO % 5.1 % (0.0-5.0); PLATELET COUNT, AUTOMATED 230 10^3/uL (150-450); RED BLOOD COUNT 4.93 10^6/uL (4.00-5.40); WHITE BLOOD COUNT 15.6 10^3/uL (4.0-10.0)
[2019-07-25 17:37] LABS: BLOOD UREA NITROGEN 8 MG/DL (7-18); CALCIUM LEVEL 9.2 MG/DL (8.5-10.1); CARBON DIOXIDE LEVEL 27 MEQ/L (21-32); CHLORIDE LEVEL 106 MEQ/L (98-107); CK-MB VALUE MASS < 1.0 NG/ML (<3.6); CPK CREATINE PHOSPHOKINASE 42 U/L (26-192); CREATININE FOR GFR 0.85 MG/DL (0.55-1.30); ETHYL ALCOHOL (ETHANOL) < 0.003 % (0.000-0.010); FREE T4 0.91 NG/DL (0.76-1.46); GLOMERULAR FILTRATION RATE > 60.0 (>51); GLUCOSE, FASTING 178 MG/DL (70-100); MB/CK RELATIVE INDEX 2.38 (< OR =4); POTASSIUM SERUM 3.7 MEQ/L (3.5-5.1); SODIUM LEVEL 140 MEQ/L (136-145); TROPONIN I < 0.02 NG/ML (< 0.10)
[2019-07-25 17:47] LABS: INR 1.03; PARTIAL THROMBOPLASTIN TIME 24.6 SECONDS (25.0-38.4); PROTHROMBIN TIME 13.2 SECONDS (11.8-14.0)
[2019-07-25] MEDS ORDERED: NS 1,000 ML IV ONE (18:00)
--- NOTE | 2019-07-25 19:24 | HPEPDOC ---
[facility] Medical History & Physical Date of Admission Jul 25, 2019 Date of Service: Jul 25, 2019 Primary Care Physician: BRANDY OCHOA MD Attending Physician: GARRY PIMENTEL MD History and Physical TIME OF SERVICE 730 PM CHIEF COMPLAINT: fall HISTORY OF PRESENT ILLNESS: This is a 59 yr old female who was brought to the ED by her son after having an unwitnessed fall while trying to walk down the stairs earlier on today. The patient reports holding onto the banister and the next thing she knew she was on the floor and her son was opening the front door. The patient is not sure if her legs gave out and is not sure if she lost consciousness. As a result of the fall she hit her head developed a headache. At her baseline she uses a cane and walker. She did not have her cane or walker while walking down the stairs. The son reports that his mother was conscious and alert when he found her. She also endorses feeling lightheaded, having palpitations, and being more forgetful recently. The patient denies having fevers, denies chills, denies nausea, eyes vomiting, denies diarrhea, denies chest pain or ringing in the ears prior to the fall. She has chronic shortness of breath, which has not changed recently, and chronic left sided abdominal pain. REVIEW OF SYSTEMS: 12 point ROS negative except as listed in HPI PAST MEDICAL /SURGICAL HISTORY: 1. Chronic HTN 2. Sleep Apnea on CPAP w dependence on 2L of O2 at night. 3. COPD 4. Type 2 diabetes 5. Small Vessel Ischemic Dz / TIA. 6. Status post angiograms 3 (the patient reports that she was told that there was no obstruction) 7. GERD 8. Anxiety / Depression 9. Urinary Incontinence s/p bladder suspension surgery 10. Complex Migraines / Occipital Neuralgia 11. OA / Spinal Stenosis affecting L2-5 / Unsteady Gait (uses cane & walker) 12. Osteoporosis 13. s/p Appendectomy 14. s/p TKR 15. s/p Tubal ligation 16. s/p Cholecystectomy SOCIAL HISTORY: smoker 1 pack per day Denies alcohol use. Denies recreational drug use. Lives with her son, [id number] and granddaughter FAMILY HISTORY: CVA HTN CAD/NC HOME MEDICATIONS: Please see below. PHYSICAL EXAMINATION: VITAL SIGNS: See below GENERAL APPEARANCE: Well-nourished, well-developed, no apparent distress HEENT: Normocephalic, atraumatic, mucous members moist and pink, CARDIOVASCULAR: Regular rate and rhythm, no murmurs, rubs or gallops, radial pulses intact, no lower extremity edema, shortness warm and well-perfused LUNGS: Clear to auscultation bilaterally on room air ABDOMEN: Obese, soft, tender on palpation of the left lower region, no rebound tenderness MUSCULOSKELETAL: Range of motion intact in all 4 extremities, strength 5 out of 5 in upper and lower extremities. No clonus NEUROLOGICAL: Cranial nerves II-12 grossly intact. Speech not dysarthric PSYCHIATRIC: Alert and oriented, able to understand and follow commands LABORATORY DATA: See below. IMAGING: Chest x-ray no acute process. CT of the head no acute process CT of the neck. No acute process X-ray of the right knee. No acute process MICROBIOLOGY: Please see below. ASSESSMENT: Ms. Lindsay is a 59 year old female with a possible history of TIA, chronic hypertension, migraines, COPD, sleep apnea, migraines, nocturnal oxygen dependence, GERD, Anxiety, Depression and Unsteady Gait who will be admitted for evaluation of an unwitnessed fall that may have been syncopal in nature. PLAN: 1. Fall / Syncope ? Cause to be determined. Differential based on the history includes UTI, TIA, or arrhythmia CT of the head and troponin were unremarkable. Plan: admit to [facility]/ telemetry / fall precautions /seizure precautions / frequent neurochecks / f/u orthostatic vital signs / f/u MRI brain, carotid ultrasound and Echo / unable to do CTA because of allergy to contrast 2.Leucocytosis -lactic acid also elevated Chest x-rays unremarkable -no definitive source of infection identified Plan: f/u UA and repeat lactic acid 3. Small Vessel Ischemic Dz Pt also has questionable hx of TIA Plan: ASA & statin 4.Chronic HTN Well-controlled Plan: Continue home meds 5. COPD 2/2 Tobacco Abuse Well-controlled Plan: Continue home meds / smoking cessation education 6. Sleep Apnea on CPAP Plan: nocturnal CPAP w 2L of O2 7. Type 2 diabetes Plan: Follow-up Accu-Cheks,/hold home meds/sliding scale insulin/follow-up A1c 8. GERD Plan: Continue w protonix and hold Ranitidine bc of antihistamine effects which can be sedating 8. Complex Migraines / Occipital Neuralgia Plan: Continue home meds 9. OA / Spinal Stenosis affecting L2-5 / Unsteady Gait (uses cane & walker) Plan: PT eval 10. Obesity BMI 38.5 due to her OA and unsteady gait it will be difficult for her to exercise enough to loose a significant amount of weight Plan: since the patient has a BMI >35 and DM she is a candidate for Bariatric surgery, she can f/u her PCP to discuss her diet and referral to a Bariatric Surgeon / DVT prophylaxis with Lovenox Disposition pending clinical course Vital Signs Vital Signs Date Time Temp Pulse Resp B/P (MAP) Pulse Ox O2 Delivery O2 Flow Rate FiO2 07/25/19 18:23 81 96 07/25/19 18:15 118/58 (78) 07/25/19 16:38 16 07/25/19 15:17 98.1 Laboratory Data Labs 24H Laboratory Tests 2 07/25/19 16:48: Immature Granulocyte % (Auto) 0.6, White Blood Count 15.6H, Red Blood Count 4.93, Hemoglobin 15.1, Hematocrit 46.4, Mean Corpuscular Volume 94.1, Mean Co rpuscular Hemoglobin 30.6, Mean Corpuscular Hemoglobin Concent 32.5, Red Cell Distribution Width 13.1, Platelet Count 230, Neutrophils (%) (Auto) 71.0H, Lymphocytes (%) (Auto) 22.6L, Monocytes (%) (Auto) 5.1H, Eosinophils (%) (Auto) 0.2, Basophils (%) (Auto) 0.5, Neutrophils # (Auto) 11.0H, Lymphocytes # (Auto) 3.5, Monocytes # (Auto) 0.8, Eosinophils # (Auto) 0.0, Basophils # (Auto) 0.1, Nucleated Red Blood Cells % (auto) 0.0, Anion Gap 7L, Glomerular Filtration Rate > 60.0, Lactic Acid Level 2.6*H, Blood Urea Nitrogen 8, Creatinine 0.85, Sodium Level 140, Potassium Level 3.7, Chloride Level 106, Carbon Dioxide Level 27, Calcium Level 9.2, Total Creatine Kinase 42, Magnesium Level 2.0, Creatine Kinase MB < 1.0, Creatine Kinase MB Relative Index 2.38, Troponin I < 0.02, Thyroid Stimulating Hormone (TSH) 1.970, Free Thyroxine 0.91, Ethyl Alcohol Level < 0.003 07/25/19 16:49: Prothrombin Time 13.2, Prothromb Time International Ratio 1.03, Activated Partial Thromboplast Time 24.6L CBC/BMP Laboratory Tests 07/25/19 16:48 Red Blood Count 4.93, Mean Corpuscular Volume 94.1, Mean Corpuscular Hemoglobin 30.6, Mean Corpuscular Hemoglobin Concent 32.5, Red Cell Distribution Width 13.1, Neutrophils (%) (Auto) 71.0 H, Lymphocytes (%) (Auto) 22.6 L, Monocytes (%) (Auto) 5.1 H, Eosinophils (%) (Auto) 0.2, Basophils (%) (Auto) 0.5, Neutrophils # (Auto) 11.0 H, Lymphocytes # (Auto) 3.5, Monocytes # (Auto) 0.8, Eosinophils # (Auto) 0.0, Basophils # (Auto) 0.1, Calcium Level 9.2, Total Creatine Kinase 42 Home Medications Scheduled Aspirin (Aspirin EC) 81 Mg Tab, 81 MG PO DAILY Clonazepam (Clonazepam) 0.5 Mg Tab, 0.5 MG PO BID PER HER MD SHE MAY TAKE A 3RD DOSE IF NEEDED Ergocalciferol (Vitamin D2) (Vitamin D2) 50,000 Unit Cap, 50,000 UNIT PO QWEEK TAKES ON WEDNESDAY Metformin HCl (Metformin HCl ER) 500 Mg Tab, 1,000 MG PO QPM Pantoprazole Sodium (Pantoprazole Sodium) 40 Mg Tab, 40 MG PO BID Potassium Chloride (Potassium Chloride) 10 Meq Tab, 10 MEQ PO DAILY Ranitidine HCl (Ranitidine HCl) 300 Mg Tab, 1 TAB PO BID Topiramate (Topiramate) 50 Mg Tab, 100 MG PO QHS Venlafaxine HCl (Venlafaxine HCl ER) 75 Mg Capcr, 150 MG PO DAILY Scheduled PRN Hydrocodone/Acetaminophen (Hydrocodone-Acetamin 10-325 mg) 1 Tab Tab, 1 TAB PO BID PRN for PAIN ORDERED TID PRN, PATIENT TAKES BID Allergies Coded Allergies: Contrast Media (Verified Allergy, Intermediate, RASH, 12/27/18) Cephalosporins (Verified Allergy, Mild, Rash, 07/25/19) A-FIB/CHADSVASC A-FIB History Current/History of A-Fib/PAF?: No Current PO Anticoag Therapy: No GARRY PIMENTEL MD Jul 25, 2019 19:24
[2019-07-25 20:12] LABS: AMPHETAMINES LEVEL URINE NEGATIVE (NEGATIVE); BARBITURATES URINE NEGATIVE (NEGATIVE); BENZODIAZEPINES URINE NEGATIVE (NEGATIVE); CANNABINOIDS URINE NEGATIVE (NEGATIVE); COCAINE METABOLITE URINE NEGATIVE (NEGATIVE); METHADONE URINE NEGATIVE (NEGATIVE); OPIATES URINE POSITIVE (NEGATIVE); PHENCYCLIDINE URINE NEGATIVE (NEGATIVE)
[2019-07-25] MEDS ORDERED: DEXTROSE 50% 50 ML SYRINGE IV PRN (20:45)
[2019-07-25] MEDS: ATORVASTATIN 20 MG TAB PO SCH (21:00)
[2019-07-25 22:00] VITALS: BP 134/65
[2019-07-25 22:37] LABS: HEMOGLOBIN A1c 7.5 %
[2019-07-25] MEDS: PANTOPRAZOLE 40MG TAB (PROTONIX) PO SCH (22:41)
[2019-07-25] MEDS: TOPIRAMATE (TopAMAX) 25 MG TAB PO SCH (22:41)
[2019-07-25] MEDS: clonazePAM 0.5 MG TAB PO SCH (22:42)
[2019-07-25] MEDS: ENOXAPARIN 40 MG/0.4 ML SYRINGE (J1650) SC SCH (22:43)
[2019-07-25] MEDS: NORCO, ANEXSIA 5/325MG TABLET (HYDROcodone/ACETAMINOPHEN) PO PRN (22:44)
[2019-07-25 22:45] VITALS: BP_SYST 121; BP_SYST 122; BP_SYST 125; BP_DIAS 63; BP_DIAS 64; BP_DIAS 65
[2019-07-26 06:00] VITALS: BP 131/67
[2019-07-26 06:00] LABS: HEMATOCRIT 39.9 % (36.0-47.0); MEAN CORPUSCULAR HEMOGLOBIN 31.6 pg (27.0-33.0); MEAN CORPUSCULAR HGB CONC 32.3 g/dl (32.0-36.5); MEAN CORPUSCULAR VOLUME 97.8 fl (80.0-96.0); PLATELET COUNT, AUTOMATED 184 10^3/uL (150-450); RED BLOOD COUNT 4.08 10^6/uL (4.00-5.40); WHITE BLOOD COUNT 10.4 10^3/uL (4.0-10.0)
[2019-07-26 06:12] LABS: HEMOGLOBIN 12.9 g/dl (12.0-15.5)
[2019-07-26 06:15] VITALS: BP_SYST 110; BP_SYST 112; BP_DIAS 56; BP_DIAS 63; BP_DIAS 64
[2019-07-26 06:19] LABS: BLOOD UREA NITROGEN 8 MG/DL (7-18); CALCIUM LEVEL 8.4 MG/DL (8.5-10.1); CARBON DIOXIDE LEVEL 30 MEQ/L (21-32); CHLORIDE LEVEL 109 MEQ/L (98-107); CREATININE FOR GFR 0.85 MG/DL (0.55-1.30); GLOMERULAR FILTRATION RATE > 60.0 (>51); GLUCOSE, FASTING 166 MG/DL (70-100); POTASSIUM SERUM 3.7 MEQ/L (3.5-5.1); SODIUM LEVEL 143 MEQ/L (136-145)
[2019-07-26] MEDS: ASPIRIN 81 MG ENTERIC TAB PO SCH (08:53)
[2019-07-26] MEDS: NYSTATIN 100,000 UNITS/GM TOPICAL PWD 15 GM TOP SCH ×2 (08:53→20:24)
[2019-07-26] MEDS: clonazePAM 0.5 MG TAB PO SCH ×2 (08:54→20:22)
[2019-07-26] MEDS: POTASSIUM CHLORIDE 10 MEQ SR TABLET PO SCH (08:54)
[2019-07-26] MEDS: PANTOPRAZOLE 40MG TAB (PROTONIX) PO SCH ×2 (08:54→20:22)
[2019-07-26] MEDS: VENLAFAXINE **XR** 75MG CAPSULE PO SCH (08:54)
[2019-07-26] MEDS: HumaLOG INSULIN (NovoLOG) PER UNIT SC SCH ×3 (08:55→18:12)
[2019-07-26] MEDS ORDERED: VENLAFAXINE **XR** 75MG CAPSULE PO SCH (09:00)
--- NOTE | 2019-07-26 12:38 | IPNPDOC ---
Text Note Date of Service The patient was seen on 07/26/19. NOTE Subjective: Patient seen and examined at bedside. No new medical complaints this morning. States she has been experiencing falls for several years, sometimes associated with dizziness and weakness in her legs. Denies any seizure like activity. Objective: General: NAD, lying comfortably in bed HEENT: NC/AT, EOMI, PERRL Lungs: CTA B/L Heart: +S1S2, RRR Abd: soft, LLQ miminal tenderness, +BS Ext: no edema ASSESSMENT: Ms. Lindsay is a 59 year old female with a possible history of TIA, HTN, migraines, COPD, sleep apnea using CPAP/O2, migraines, GERD, Anxiety, Depression and Unsteady Gait who will be admitted for evaluation of an unwitnessed fall that may have been syncopal in nature. PLAN: # Fall / Syncope ? - continue telemetry / fall precautions /seizure precautions / frequent neurochecks / f/u orthostatic vital signs / f/u MRI brain, carotid ultrasound and Echo / unable to do CTA because of allergy to contrast #.Leucocytosis -lactic acid also elevated -no definitive source of infection identified - continue to follow clinically - does endorse some abdominal tenderness - CT a/p pending # Small Vessel Ischemic Dz - hx TIA? -continue ASA & statin #HTN - Continue home meds #COPD/nicotine abuse - Continue home meds / smoking cessation education #Sleep Apnea on CPAP Plan: nocturnal CPAP w 2L of O2 #Type 2 diabetes Plan: Follow-up Accu-Cheks,/hold home meds/sliding scale insulin/follow-up A1c # GERD Plan: Continue w protonix and hold Ranitidine bc of antihistamine effects which can be sedating # Complex Migraines / Occipital Neuralgia Plan: Continue home meds #OA / Spinal Stenosis affecting L2-5 / Unsteady Gait (uses cane & walker) Plan: PT eval #Obesity - complicates medical care #DVT prophylaxis with Lovenox VS,Fishbone, I+O VS, Fishbone, I+O Laboratory Tests 07/25/19 16:48 Red Blood Count 4.93, Mean Corpuscular Volume 94.1, Mean Corpuscular Hemoglobin 30.6, Mean Corpuscular Hemoglobin Concent 32.5, Red Cell Distribution Width 13.1, Neutrophils (%) (Auto) 71.0 H, Lymphocytes (%) (Auto) 22.6 L, Monocytes (%) (Auto) 5.1 H, Eosinophils (%) (Auto) 0.2, Basophils (%) (Auto) 0.5, Neutrophils # (Auto) 11.0 H, Lymphocytes # (Auto) 3.5, Monocytes # (Auto) 0.8, Eosinophils # (Auto) 0.0, Basophils # (Auto) 0.1, Calcium Level 9.2, Total Creatine Kinase 42 07/26/19 05:31 Red Blood Count 4.08, Mean Corpuscular Volume 97.8 H, Mean Corpuscular Hemoglobin 31.6, Mean Corpuscular Hemoglobin Concent 32.3, Red Cell Distribution Width 13.0, Calcium Level 8.4 L Vital Signs Date Time Temp Pulse Resp B/P (MAP) Pulse Ox O2 Delivery O2 Flow Rate FiO2 07/26/19 06:15 71 110/56 (74) 64 110/64 (79) 88 112/63 (79) 07/26/19 06:00 97.8 16 97 I&O- Last 24 Hours up to 6 AM 07/26/19 06:00 Intake Total 1000 ml Balance 1000 ml SAMANTHA ANTOINE MD Jul 26, 2019 12:38
[2019-07-26 14:00] VITALS: BP 147/78
--- NOTE | 2019-07-26 14:04 | REP ---
Clinical: Abdominal pain. Technique: Axial noncontrast images from the lung bases to the pubic symphysis with coronal and sagittal re-formations. Comparison: 05/30/2019. Findings: Lung bases are relatively clear. Visualized heart and pericardium normal. Fatty infiltration to the liver noted without focal hepatic lesion. Spleen, pancreas, and bilateral kidneys are normal for noncontrast evaluation. Adrenal glands demonstrate small benign stable adenomas. Evidence of prior cholecystectomy. The enteric system is without obstruction or acute inflammatory process. Pelvis demonstrates normal bladder and evidence of prior hysterectomy. No ascites. No free air. No adenopathy. Abdominal aorta without aneurysm. Musculoskeletal structures demonstrate degenerative changes without focal osseous abnormality. Impression: 1. Hepatic steatosis. 2. Stable benign bilateral adrenal adenomas. 3. Evidence of prior cholecystectomy, appendectomy, and hysterectomy. 4. No acute abdominopelvic pathology appreciated. No ascites. No adenopathy. No focal inflammatory stranding. Electronically Signed by Keivn Boss MD 07/26/2019 01:56 P
--- NOTE | 2019-07-26 16:58 | ECGEPIP ---
[facility] - ED Test Date: 2019-07-25 Pat Name: AMINA POOLE Department: Room: - Gender: Female [employer] Paraprofessional: merna : 1960 Requested By: RAMOS Fay Order Number: [id number] Reading MD: Codie Murrell Measurements Intervals [place] Rate: 100 P: 37 OH: 156 QRS: 59 QRSD: 74 T: 53 QT: 326 QTc: 421 Interpretive Statements SINUS TACHYCARDIA ST DEVIATION AND MODERATE T-WAVE ABNORMALITY, CONSIDER ANTERIOR ISCHEMIA INCREASED RATE 12/03/15 Electronically Signed on 07-26-2019 16:58:03 EDT by Codie Murrell
--- NOTE | 2019-07-26 17:29 | REPVR ---
EXAM: MR Angiogram Head Without Contrast, Arteries EXAM DATE/TIME: 07/26/2019 5:13 PM CLINICAL HISTORY: 59 years old, female; Syncope and collapse TECHNIQUE: Imaging protocol: MR angiogram head without contrast. Exam focused on the arteries. 3D rendering: MIP reconstructed images were created and reviewed. COMPARISON: MRA BRAIN W/O CONTRAST 12/13/2014 7:44 PM FINDINGS: Right internal carotid artery: Unremarkable. Intracranial segment is patent with no significant stenosis. No aneurysm. Right anterior cerebral artery: Unremarkable. No occlusion or significant stenosis. No aneurysm. Right middle cerebral artery: Unremarkable. No occlusion or significant stenosis. No aneurysm. Right posterior cerebral artery: Unremarkable. No occlusion or significant stenosis. No aneurysm. Right vertebral artery: Unremarkable. No occlusion or significant stenosis. No aneurysm. Left internal carotid artery: Unremarkable. Intracranial segment is patent with no significant stenosis. No aneurysm. Left anterior cerebral artery: Unremarkable. No occlusion or significant stenosis. No aneurysm. Left middle cerebral artery: Unremarkable. No occlusion or significant stenosis. No aneurysm. Left posterior cerebral artery: Unremarkable. No occlusion or significant stenosis. No aneurysm. Left vertebral artery: Unremarkable. No occlusion or significant stenosis. No aneurysm. Basilar artery: Unremarkable. No occlusion or significant stenosis. No aneurysm. IMPRESSION: No acute findings. Electronically signed by: Pb Longo On 07/26/2019 17:29:53 PM
[2019-07-26] MEDS: ATORVASTATIN 20 MG TAB PO SCH ×2 (20:22→21:00)
[2019-07-26] MEDS: TOPIRAMATE (TopAMAX) 25 MG TAB PO SCH (20:22)
[2019-07-26] MEDS: NORCO, ANEXSIA 5/325MG TABLET (HYDROcodone/ACETAMINOPHEN) PO PRN (20:23)
[2019-07-26] MEDS: ENOXAPARIN 40 MG/0.4 ML SYRINGE (J1650) SC SCH (20:24)
--- NOTE | 2019-07-26 20:26 | ECHO ---
DATE OF PROCEDURE: 07/26/2019 Date of : 1960 Age: 59 REFERRING PHYSICIAN: Mark Khalil MD PATIENT LOCATION: Room 4227 REASON FOR ECHOCARDIOGRAM: Syncope. 2D MEASUREMENTS IVS: 1.0 cm LV: 4.9 cm LVPW: 0.94 cm LA: 3.7 cm Aorta: 3.1 cm IVC: 1.8 cm DOPPLER MEASUREMENTS Peak velocity across the aortic valve: 1.2 m/s Peak velocity across the LVOT: 0.59 m/s Mitral E: 0.75, Mitral A: 0.93 with a ratio of 0.8 Maximum tricuspid valve velocity: 2.8 m/s 2D COMMENTS: 1. Normal left ventricular size, wall thickness, and normal global left ventricular systolic function. The estimated left ventricular systolic ejection fraction is 60 to 65%. 2. Normal left atrium. Normal right atrium and right ventricle. 3. The atrial septum appeared to be normal without evidence of defect or shunt. 4. Normal aortic root. 5. A small pericardial effusion was noted, no evidence of cardiac tamponade. 6. Mildly calcified aortic valve with normal leaflet motion. Mildly calcified mitral annulus with normal anterior mitral valve leaflet motion. Normal tricuspid valve. The pulmonic valve and proximal pulmonary artery branches were not well visualized. 7. The inferior vena cava was normal in size, central venous pressure is most likely normal. DOPPLER It detects mild mitral regurgitation, mild tricuspid regurgitation. The calculated pulmonary artery systolic pressure varies between 30-40 mmHg. Abnormal relaxation pattern was noted across the mitral valve leaflets as well as the mitral valve annulus consistent with features of grade 1 left ventricular diastolic dysfunction. IMPRESSION 1. Normal global left ventricular systolic function. There is some features of left ventricular diastolic dysfunction manifested by abnormal relaxation. 2. Aortic valve sclerosis without stenosis or aortic regurgitation. 3. Mitral annulus calcification with mild mitral regurgitation. 4. Mild tricuspid regurgitation with mild pulmonary hypertension. 5. A small pericardial effusion was noted, no evidence of cardiac tamponade. 6. The pulmonic valve and proximal pulmonary artery branches were not well visualized.
[2019-07-26 22:00] VITALS: BP 124/68
[2019-07-27 06:00] VITALS: BP_SYST 114; BP_SYST 123; BP_SYST 124; BP_SYST 129; BP_DIAS 63; BP_DIAS 64; BP_DIAS 72
[2019-07-27 07:32] LABS: BASO % 0.4 % (0.0-1.0); EOS # 0.1 10^3/uL (0.0-0.5); HEMATOCRIT 39.9 % (36.0-47.0); HEMOGLOBIN 12.8 g/dl (12.0-15.5); LYMPH # 3.2 10^3/uL (1.5-5.0); LYMPH % 34.9 % (24.0-44.0); MEAN CORPUSCULAR HEMOGLOBIN 30.7 pg (27.0-33.0); MEAN CORPUSCULAR HGB CONC 32.1 g/dl (32.0-36.5); MEAN CORPUSCULAR VOLUME 95.7 fl (80.0-96.0); MONO # 0.7 10^3/uL (0.0-0.8); MONO % 7.3 % (0.0-5.0); NEUTROPHILS % 55.8 % (36.0-66.0); PLATELET COUNT, AUTOMATED 171 10^3/uL (150-450); RED BLOOD COUNT 4.17 10^6/uL (4.00-5.40)
[2019-07-27 07:57] LABS: ALBUMIN 2.8 GM/DL (3.2-5.2); ALT/SGPT 21 U/L (12-78); BILIRUBIN,TOTAL 0.2 MG/DL (0.2-1.0); BLOOD UREA NITROGEN 10 MG/DL (7-18); CALCIUM LEVEL 8.3 MG/DL (8.5-10.1); CARBON DIOXIDE LEVEL 28 MEQ/L (21-32); CHLORIDE LEVEL 109 MEQ/L (98-107); CREATININE FOR GFR 0.75 MG/DL (0.55-1.30); GLOMERULAR FILTRATION RATE > 60.0 (>51); GLUCOSE, FASTING 199 MG/DL (70-100); POTASSIUM SERUM 3.5 MEQ/L (3.5-5.1); SODIUM LEVEL 142 MEQ/L (136-145); TOTAL PROTEIN 6.1 GM/DL (6.4-8.2)
[2019-07-27] MEDS: ASPIRIN 81 MG ENTERIC TAB PO SCH (08:01)
[2019-07-27] MEDS: PANTOPRAZOLE 40MG TAB (PROTONIX) PO SCH (08:01)
[2019-07-27] MEDS: clonazePAM 0.5 MG TAB PO SCH (08:01)
[2019-07-27] MEDS: POTASSIUM CHLORIDE 10 MEQ SR TABLET PO SCH (08:01)
[2019-07-27] MEDS: VENLAFAXINE **XR** 75MG CAPSULE PO SCH (08:02)
[2019-07-27] MEDS: HumaLOG INSULIN (NovoLOG) PER UNIT SC SCH (08:02)
[2019-07-27] MEDS: NYSTATIN 100,000 UNITS/GM TOPICAL PWD 15 GM TOP SCH (08:03)
--- NOTE | 2019-07-27 15:01 | DS.PDOC ---
Discharge Summary General Date of Admission Jul 26, 2019 at 10:55 Date of Discharge 07/27/19 Discharge Summary PROCEDURES PERFORMED DURING STAY: [None]. ADMITTING DIAGNOSES: 1. . DISCHARGE DIAGNOSES: 1. . COMPLICATIONS/CHIEF COMPLAINT: Syncope. HISTORY OF PRESENT ILLNESS: This is a 59 yr old female who was brought to the ED by her son after having an unwitnessed fall while trying to walk down the stair s. The patient reports holding onto the banister and the next thing she knew she was on the floor and her son was opening the front door. The patient is not sure if her legs gave out and is not sure if she lost consciousness. At her baseline she uses a cane and walker. She did not have her cane or walker while walking down the stairs. The son reports that his mother was conscious and alert when he found her. She was admitted for further evaluation and treatment. Underwent echocardiogram and telemetry monitoring, both of which were unrevealing. HOSPITAL COURSE: # Fall / Syncope ? - no events on telemetry, no acute findings on echocardiogram #.Leucocytosis -resolved - as per patient this is being addressed by her PCP # Small Vessel Ischemic Dz - hx TIA? - follow up with PCP #HTN - Continue home meds #COPD/nicotine abuse - Continue home meds / smoking cessation education #Sleep Apnea on CPAP - nocturnal CPAP w 2L of O2 #Type 2 diabetes - continue home regimen and carb controlled diet # GERD - continue home Rx # Complex Migraines / Occipital Neuralgia Plan: Continue home meds #OA / Spinal Stenosis affecting L2-5 / Unsteady Gait (uses cane & walker) - cleared by PT #Obesity - complicates medical care DISCHARGE MEDICATIONS: Please see below. ALLERGIES: Please see below. PHYSICAL EXAMINATION ON DISCHARGE: General: NAD, lying comfortably in bed HEENT: NC/AT, EOMI, PERRL Lungs: CTA B/L Heart: +S1S2, RRR Abd: soft, +BS , NT Ext: no edema LABORATORY DATA: Please see below. ACTIVITY: [As tolerated]. DIET: 2 gram sodium, carb consistent DISPOSITION: 01 Home, Self-Care. DISCHARGE INSTRUCTIONS: 1. . ITEMS TO FOLLOWUP ON ON OUTPATIENT: 1. Follow up with PCP in 3-5 days 2. recommend repeat CBC to monitor leukocytosis DISCHARGE CONDITION: [Stable]. TIME SPENT ON DISCHARGE: 35 minutes. Vital Signs/I&Os Vital Signs Date Time Temp Pulse Resp B/P (MAP) Pulse Ox O2 Delivery O2 Flow Rate FiO2 07/27/19 06:00 98.0 84 17 114/72 (86) 97 I&O- Last 24 Hours up to 6 AM 07/27/19 06:00 Intake Total 1550 ml Balance 1550 ml Laboratory Data Labs 24H Laboratory Tests 2 07/26/19 15:27: Methicillin-Resist S.aureus DNA PCR POSITIVEH 07/26/19 17:41: Bedside Glucose (Misc Panel) 126H 07/26/19 20:20: Bedside Glucose (Misc Panel) 191H 07/27/19 06:18: Bedside Glucose (Misc Panel) 179H 07/27/19 07:07: Immature Granulocyte % (Auto) 0.6, White Blood Count 9.0, Red Blood Count 4.17, Hemoglobin 12.8, Hematocrit 39.9, Mean Corpuscular Volume 95.7, Mean Corpuscular Hemoglobin 30.7, Mean Corpuscular Hemoglobin Concent 32.1, Red Cell Distribution Width 13.0, Platelet Count 171, Neutrophils (%) (Auto) 55.8, Lymphocytes (%) (Auto) 34.9, Monocytes (%) (Auto) 7.3H, Eosinophils (%) (Auto) 1.0, Basophils (%) (Auto) 0.4, Neutrophils # (Auto) 5.0, Lymphocytes # (Auto) 3.2, Monocytes # (Auto) 0.7, Eosinophils # (Auto) 0.1, Basophils # (Auto) 0.0, Nucleated Red Blood Cells % (auto) 0.0, Anion Gap 5L, Glomerular Filtration Rate > 60.0, Lactic Acid Level 1.8, Blood Urea Nitrogen 10, Creatinine 0.75, Sodium Level 142, Potassium Level 3.5, Chloride Level 109H, Carbon Dioxide Level 28, Calcium Level 8.3L, Aspartate Amino Transf (AST/SGOT) 14, Alanine Aminotransf erase (ALT/SGPT) 21, Alkaline Phosphatase 104, Total Bilirubin 0.2, Total Protein 6.1L, Albumin 2.8L, Albumin/Globulin Ratio 0.85L 07/27/19 11:31: Bedside Glucose (Misc Panel) 197H CBC/BMP Laboratory Tests 07/27/19 07:07 Red Blood Count 4.17, Mean Corpuscular Volume 95.7, Mean Corpuscular Hemoglobin 30.7, Mean Corpuscular Hemoglobin Concent 32.1, Red Cell Distribution Width 13.0, Neutrophils (%) (Auto) 55.8, Lymphocytes (%) (Auto) 34.9, Monocytes (%) (Auto) 7.3 H, Eosinophils (%) (Auto) 1.0, Basophils (%) (Auto) 0.4, Neutrophils # (Auto) 5.0, Lymphocytes # (Auto) 3.2, Monocytes # (Auto) 0.7, Eosinophils # (Auto) 0.1, Basophils # (Auto) 0.0, Calcium Level 8.3 L, Aspartate Amino Transf (AST/SGOT) 14, Alanine Aminotransferase (ALT/SGPT) 21, Alkaline Phosphatase 104, Total Bilirubin 0.2, Total Protein 6.1 L, Albumin 2.8 L FSBS Laboratory Tests Test 07/26/19 17:41 07/26/19 20:20 07/27/19 06:18 07/27/19 11:31 Range/Units Bedside Glucose (Misc Panel) 126 191 179 197 70-105 MG/DL Discharge Medications Scheduled Aspirin (Aspirin EC) 81 Mg Tab, 81 MG PO DAILY, (Reported) Clonazepam (Clonazepam) 0.5 Mg Tab, 0.5 MG PO BID, (Reported) PER HER MD SHE MAY TAKE A 3RD DOSE IF NEEDED Ergocalciferol (Vitamin D2) (Vitamin D2) 50,000 Unit Cap, 50,000 UNIT PO QWEEK, (Reported) TAKES ON WEDNESDAY Metformin HCl (Metformin HCl ER) 500 Mg Tab, 1,000 MG PO QPM, (Reported) Pantoprazole Sodium (Pantoprazole Sodium) 40 Mg Tab, 40 MG PO BID, (Reported) Potassium Chloride (Potassium Chloride) 10 Meq Tab, 10 MEQ PO DAILY, (Reported) Ranitidine HCl (Ranitidine HCl) 300 Mg Tab, 1 TAB PO BID, (Reported) Topiramate (Topiramate) 50 Mg Tab, 100 MG PO QHS, (Reported) Venlafaxine HCl (Venlafaxine HCl ER) 75 Mg Capcr, 150 MG PO DAILY, (Reported) Scheduled PRN Hydrocodone/Acetaminophen (Hydrocodone-Acetamin 10-325 mg) 1 Tab Tab, 1 TAB PO BID PRN for PAIN, (Reported) ORDERED TID PRN, PATIENT TAKES BID Allergies Coded Allergies: Contrast Media (Verified Allergy, Intermediate, RASH, 12/27/18) Cephalosporins (Verified Allergy, Mild, Rash, 07/25/19) SAMANTHA ANTOINE MD Jul 27, 2019 15:01
== END 2019-07-27 12:14 | disposition home or self-care (01) | DRG 312 ==
LOC: M ED 15:06 → EDBD 15:06 → M ED INP 15:07 → M MSPAV 21:05 → OBSVTOIN 07-26 10:55
PROVIDERS: ADMIT Internal Medicine; ATTEND Internal Medicine
DX: R55 Syncope and collapse (principal); I10 Essential (primary) hypertension; G47.30 Sleep apnea, unspecified; J44.9 Chronic obstructive pulmonary disease, unspecified; E11.9 Type 2 diabetes mellitus without complications; E66.9 Obesity, unspecified; K21.9 Gastro-esophageal reflux disease without esophagitis; F41.9 Anxiety disorder, unspecified; F32.9 Major depressive disorder, single episode, unspecified; R26.81 Unsteadiness on feet; M81.0 Age-related osteoporosis without current pathological fracture; M54.81 Occipital neuralgia; M48.061 Spinal stenosis, lumbar region without neurogenic claudication; Z90.49 Acquired absence of other specified parts of digestive tract; F17.200 Nicotine dependence, unspecified, uncomplicated; Z86.73 Personal history of transient ischemic attack (TIA), and cerebral infarction without residual deficits; Z68.38 Body mass index [BMI] 38.0-38.9, adult; Z79.82 Long term (current) use of aspirin; Z79.84 Long term (current) use of oral hypoglycemic drugs; Z79.899 Other long term (current) drug therapy; Z88.5 Allergy status to narcotic agent

== ENCOUNTER → 2019-09-14 | Outpatient (REF) | payer MEDICARE, OTHER ==
[~2019-09-14] MED LIST changes: +METF-791 PO; -METF500T4 PO
[2019-09-14 11:49] LABS: ALBUMIN 3.4 GM/DL (3.2-5.2); ALT/SGPT 32 U/L (12-78); BILIRUBIN,TOTAL 0.6 MG/DL (0.2-1.0); BLOOD UREA NITROGEN 11 MG/DL (7-18); CARBON DIOXIDE LEVEL 28 MEQ/L (21-32); CHLORIDE LEVEL 104 MEQ/L (98-107); CHOLESTEROL LEVEL 279 MG/DL (<200); CREATININE FOR GFR 0.76 MG/DL (0.55-1.30); GLOMERULAR FILTRATION RATE > 60.0 (>51); GLUCOSE, FASTING 161 MG/DL (70-100); HDL CHOLESTEROL 51 MG/DL (>40); LDL CHOLESTEROL 192 MG/DL (<100); NON-HDL-C 228 MG/DL; POTASSIUM SERUM 4.3 MEQ/L (3.5-5.1); SODIUM LEVEL 140 MEQ/L (136-145); TOTAL PROTEIN 7.3 GM/DL (6.4-8.2); TRIGLYCERIDES LEVEL 179 MG/DL (<150)
== END ==
LOC: M LABDRAWP 08:34
PROVIDERS: ATTEND Internal Medicine Cardiovascular Disease
DX: Z01.812 Encounter for preprocedural laboratory examination (principal); E78.5 Hyperlipidemia, unspecified

== ENCOUNTER → 2019-09-14 | Outpatient (REF) | payer MEDICARE, OTHER ==
[2019-09-14 11:11] LABS: APPEARANCE, URINE CLEAR (CLEAR); BACTERIA, URINE AUTO NEGATIVE (NEGATIVE); BILIRUBIN, URINE AUTO NEGATIVE (NEGATIVE); BLOOD, URINE BLOOD 1+ (NEGATIVE); COLOR, URINE YELLOW (YELLOW); GLUCOSE, URINE (UA) AUTO NEGATIVE (NEGATIVE); KETONE, URINE AUTO NEGATIVE (NEGATIVE); LEUKOCYTE ESTERASE, URINE AUTO NEGATIVE (NEGATIVE); MUCUS, URINE SMALL (NEGATIVE); NITRITE, URINE AUTO NEGATIVE (NEGATIVE); PROTEIN, URINE AUTO NEGATIVE (NEGATIVE); RBC, URINE AUTO 2 /HPF (0-3); SPECIFIC GRAVITY URINE AUTO 1.015 (1.002-1.035); SQUAMOUS EPITHELIAL CELL UR AU 4 /HPF (0-6); WBC, URINE AUTO 1 /HPF (0-3)
== END ==
LOC: M LABDRAWP 08:32
PROVIDERS: ATTEND Urology
DX: Z01.812 Encounter for preprocedural laboratory examination (principal)

== ENCOUNTER → 2019-11-27 | Outpatient (CLI) | payer MEDICARE, OTHER ==
[~2019-11-27] MED LIST changes: +CLON0.5T2 PO; -CLON0.5T8 PO
--- NOTE | 2019-11-28 10:13 | REPPI ---
Chest x-ray: Two views: History: Hemoptysis. Comparison study is from July 25, 2019. Findings: The lungs are symmetrically aerated and free of infiltrate. Pleural angles are sharp. Heart size is borderline. Cardiothoracic ratio is 50.8%. Pulmonary vasculature is not increased. There are degenerative changes in the thoracic spine. No hilar or mediastinal abnormality is seen. Impression: Mildly prominent heart. Otherwise no acute disease. Electronically Signed by Josh Woods MD 11/28/2019 10:37 A
== END ==
LOC: M PLAIMG 15:40
PROVIDERS: ATTEND Family Medicine
DX: R04.2 Hemoptysis (principal); M51.34 Other intervertebral disc degeneration, thoracic region

== ENCOUNTER → 2019-11-27 | Outpatient (REF) | payer MEDICARE, OTHER ==
[2019-11-27 18:48] LABS: MAU/CREAT RATIO 25.7 MCG/MG (0.0-30.0)
== END ==
LOC: M SFHCPLAZ 15:21
PROVIDERS: ATTEND Family Medicine
DX: E11.9 Type 2 diabetes mellitus without complications (principal); Z22.322 Carrier or suspected carrier of Methicillin resistant Staphylococcus aureus; Z79.899 Other long term (current) drug therapy

== ENCOUNTER → 2020-01-03 | Outpatient (REF) | payer MEDICARE, OTHER ==
[2020-01-03 19:00] LABS: APPEARANCE, URINE CLEAR (CLEAR); BACTERIA, URINE AUTO NEGATIVE (NEGATIVE); BILIRUBIN, URINE AUTO NEGATIVE (NEGATIVE); BLOOD, URINE BLOOD NEGATIVE (NEGATIVE); COLOR, URINE YELLOW (YELLOW); GLUCOSE, URINE (UA) AUTO 3+ mg/dL (NEGATIVE); KETONE, URINE AUTO NEGATIVE (NEGATIVE); LEUKOCYTE ESTERASE, URINE AUTO NEGATIVE (NEGATIVE); MUCUS, URINE SMALL (NEGATIVE); NITRITE, URINE AUTO NEGATIVE (NEGATIVE); PROTEIN, URINE AUTO NEGATIVE (NEGATIVE); RBC, URINE AUTO 0 /HPF (0-3); SPECIFIC GRAVITY URINE AUTO 1.014 (1.002-1.035); SQUAMOUS EPITHELIAL CELL UR AU 1 /HPF (0-6); UROBILINOGEN, URINE AUTO 0.2 mg/dL (0.0-2.0); WBC, URINE AUTO 1 /HPF (0-3)
== END ==
LOC: M LAB REF 17:23
PROVIDERS: ATTEND Urology
DX: N39.41 Urge incontinence (principal); R35.1 Nocturia

== ENCOUNTER → 2020-03-19 | Outpatient (REF) | payer MEDICARE, OTHER ==
[~2020-03-19] MED LIST changes: +CYCL-707 PO; -CYCL10TA PO; -METF-791 PO; +METF-838 PO; +PANT40TA29 PO; -PANT40TA3 PO; +TOPA1TAB PO; +VENL150C43 PO
[2020-03-19 17:23] LABS: HEMOGLOBIN A1c 9.1 %
== END ==
LOC: M SFHCPLAZ 15:29
PROVIDERS: ATTEND Family Medicine
DX: E11.9 Type 2 diabetes mellitus without complications (principal)
CPT/HCPCS: 36415; 83036; G0463

== ENCOUNTER → 2020-05-08 | Outpatient (REF) | payer MEDICARE, OTHER ==
[~2020-05-08] MED LIST changes: -PANT40TA29 PO; +PANT40TA3 PO
[2020-05-08 17:09] LABS: MEAN CORPUSCULAR HEMOGLOBIN 30.5 pg (27.0-33.0); MEAN CORPUSCULAR HGB CONC 31.9 g/dl (32.0-36.5); MEAN CORPUSCULAR VOLUME 95.5 fl (80.0-96.0); PLATELET COUNT, AUTOMATED 226 10^3/uL (150-450); RED BLOOD COUNT 4.92 10^6/uL (4.00-5.40); WHITE BLOOD COUNT 10.8 10^3/uL (4.0-10.0)
[2020-05-08 17:16] LABS: PERCENT SATURATION 46.2 % (13.2-45.0)
== END ==
LOC: M SFHCPLAZ 15:16
PROVIDERS: ATTEND Family Medicine
DX: K62.5 Hemorrhage of anus and rectum (principal)
CPT/HCPCS: 36415; 82728; 83550; 85027; G0463

== ENCOUNTER → 2020-05-15 | Outpatient (CLI) | payer MEDICARE, OTHER ==
[~2020-05-15] MED LIST changes: +PANT40TA29 PO; -PANT40TA3 PO
--- NOTE | 2020-05-16 01:11 | REP ---
PELVIC ULTRASOUND: Real-time sonographic evaluation of pelvis performed utilizing transabdominal and endovaginal technique. Bladder is empty. The patient has had a hysterectomy. Right ovary measures 1.4 x 2.5 x 1.2 cm. Left ovary measures 2.0 x 1.3 x 1.2 cm. Cystic structure in the left ovary measures 6 mm. There is no ovarian torsion. I see no adnexal mass or free fluid. IMPRESSION: Essentially unremarkable pelvic ultrasound status post hysterectomy. No evidence of mass or free fluid.
== END ==
LOC: M WHC 13:35
PROVIDERS: ATTEND Family Medicine
DX: R10.2 Pelvic and perineal pain (principal)

== ENCOUNTER → 2020-05-23 | Outpatient (CLI) | payer MEDICARE, OTHER ==
[~2020-05-23] MED LIST changes: -PANT40TA29 PO; +PANT40TA3 PO
== END ==
LOC: M LABSMTC 11:56
PROVIDERS: ATTEND Anesthesiology
DX: Z01.818 Encounter for other preprocedural examination (principal); Z11.59 Encounter for screening for other viral diseases
CPT/HCPCS: C9803; U0003

== ENCOUNTER 2020-05-27 10:02 | Day surgery (SDC) | payer MEDICARE, OTHER ==
[~2020-05-27] VITALS: Ht 162.6 cm; Wt 95.6 kg
[~2020-05-27 10:02] MED LIST changes: +NS 1,000 ML IV ONE; +PANT40TA29 PO; -PANT40TA3 PO
[2020-05-27] MEDS ORDERED: propofoL 200 MG/20 ML VIAL As Ordered ONE (11:16)
[2020-05-27] MEDS ORDERED: LIDOCAINE 2% 100MG/5ML SDV (FOR ANES.) As Ordered ONE (11:29)
[2020-05-27] MEDS ORDERED: fentaNYL 100 MCG/2 ML INJECTION (J3010) As Ordered ONE (11:30)
--- NOTE | 2020-05-27 11:49 | ROOR ---
Patient Name: Estella Lindsay Procedure Date: 05/27/2020 11:35 AM Date of : 1960 Age: 60 Room: [facility] Gender: Female Note Status: Finalized Procedure: Upper Endoscopy + Biopsies Indications: Heartburn, Exclusion of Vail's esophagus Providers: Richi Allen MD Referring MD: Melonie Quiroga MD Requesting Provider: Medicines: Monitored Anesthesia Care Complications: No immediate complications. Procedure: Pre-Anesthesia Assessment: - The heart rate, respiratory rate, oxygen saturations, blood pressure, adequacy of pulmonary ventilation, and response to care were monitored throughout the procedure. The Endoscope was introduced through the mouth, and advanced to the second part of duodenum. The upper GI endoscopy was accomplished without difficulty. The patient tolerated the procedure well. Findings: The Z-line was variable and was found 40 cm from the incisors. Multiple biopsies were obtained with cold forceps for evaluation to rule out Vail's Esophagus randomly at the gastroesophageal junction. No other significant abnormalities were identified in a careful examination of the stomach. The exam of the duodenum was otherwise normal. Impression: - Z-line variable, 40 cm from the incisors. - Multiple biopsies were obtained at the gastroesophageal junction. - The examination was otherwise normal. Recommendation: - Patient has a contact number available for emergencies. The signs and symptoms of potential delayed complications were discussed with the patient. Return to normal activities tomorrow. Written discharge instructions were provided to the patient. - High fiber diet. - Discharge patient to home. - Follow an antireflux regimen. - Continue present medications. - Await pathology results. - Telephone GI clinic for pathology results in 1 week. - Return to referring physician. - The findings and recommendations were discussed with the patient. Richi Allen MD Richi Allen MD 05/27/2020 11:48:39 AM Electronically signed by Richi Allen MD Number of Addenda: 0 Note Initiated On: 05/27/2020 11:35 AM Estimated Blood Loss: Estimated blood loss: none.
--- NOTE | 2020-05-27 12:14 | ROOR ---
Patient Name: Estella Lindsay Procedure Date: 05/27/2020 11:36 AM Date of : 1960 Age: 60 Room: [facility] Gender: Female Note Status: Finalized Procedure: Total Colonoscopy to Cecum + Cold Snare Polypectomy Indications: High risk colon cancer surveillance: Personal history of colonic polyps, Incidental - Rectal bleeding Providers: Richi Allen MD Referring MD: Melonie Quiroga MD Requesting Provider: Medicines: Monitored Anesthesia Care Complications: No immediate complications. Procedure: Pre-Anesthesia Assessment: - The heart rate, respiratory rate, oxygen saturations, blood pressure, adequacy of pulmonary ventilation, and response to care were monitored throughout the procedure. The Colonoscope was introduced through the anus and advanced to the cecum, identified by appendiceal orifice and ileocecal valve. The colonoscopy was performed without difficulty. The patient tolerated the procedure well. The quality of the bowel preparation was good. Findings: The perianal and digital rectal examinations were normal. Non-bleeding internal hemorrhoids were found during retroflexion. The hemorrhoids were small and Grade I (internal hemorrhoids that do not prolapse). Multiple sessile polyps were found in the entire colon. The polyps were small in size. These polyps were removed with a cold snare. Resection and retrieval were complete. The exam was otherwise without abnormality on direct and retroflexion views. Impression: - Non-bleeding internal hemorrhoids. - Multiple small polyps in the entire colon, removed with a cold snare. Resected and retrieved. - The examination was otherwise normal on direct and retroflexion views. - The exam was otherwise normal to the cecum. Recommendation: - Patient has a contact number available for emergencies. The signs and symptoms of potential delayed complications were discussed with the patient. Return to normal activities tomorrow. Written discharge instructions were provided to the patient. - High fiber diet. - Discharge patient to home. - Continue present medications. - Await pathology results. - Telephone GI clinic for pathology results in 1 week. - Repeat colonoscopy for surveillance based on pathology results. - Return to referring physician. - The findings and recommendations were discussed with the patient. Richi Allen MD Richi Allen MD 05/27/2020 12:14:14 PM Electronically signed by Richi Allen MD Number of Addenda: 0 Note Initiated On: 05/27/2020 11:36 AM Estimated Blood Loss: Estimated blood loss: none.
[2020-05-27 12:39] VITALS: BP 111/59
== END 2020-05-27 12:40 | disposition home or self-care (01) ==
LOC: M OPP 10:02
PROVIDERS: ATTEND Internal Medicine Gastroenterology
DX: K64.0 First degree hemorrhoids (principal); K62.5 Hemorrhage of anus and rectum; Z86.010 Personal history of colon polyps; R12 Heartburn; K22.8 Other specified diseases of esophagus; D12.6 Benign neoplasm of colon, unspecified; K21.9 Gastro-esophageal reflux disease without esophagitis; E11.9 Type 2 diabetes mellitus without complications; J44.9 Chronic obstructive pulmonary disease, unspecified; G47.30 Sleep apnea, unspecified; F17.210 Nicotine dependence, cigarettes, uncomplicated; Z79.82 Long term (current) use of aspirin; Z79.84 Long term (current) use of oral hypoglycemic drugs; Z79.891 Long term (current) use of opiate analgesic; Z79.899 Other long term (current) drug therapy; Z91.041 Radiographic dye allergy status
CPT/HCPCS: 43239; 45385; 88305; J3010

== ENCOUNTER → 2020-06-27 | Outpatient (CLI) | payer MEDICARE, OTHER ==
[~2020-06-27] MED LIST changes: -NS 1,000 ML IV ONE
--- NOTE | 2020-07-17 11:35 | REPMRS ---
Patient History The patient states she has not had a clinical breast exam in over a year. No known family history of cancer. Benign lumpectomy of the left breast. Taking estrogen. Digital Woman Screen Mammo: June 27, 2020 - Exam #: [id number] Bilateral CC and MLO view(s) were taken. Technologist: Andree Aguirre Technologist Prior study comparison: May 29, 2019, bilateral digital mammo screening bilat, performed at [facility]. April 28, 2018, bilateral digital mammo screening bilat, performed at [facility]. March 24, 2017, digital woman screen mammo performed at [facility]. FINDINGS: The breast tissue is almost entirely fat. The Volpara volumetric breast density category is: A. There has been no change in the appearance of the mammogram from the prior studies. There is no interval development of dominant mass, architectural distortion, or grouped microcalcification typical of malignancy. 3-D tomosynthesis shows no additional findings. Assessment: BI-RADS/ACR category 1 mammogram. Negative Mammogram. Recommendation Routine screening mammogram of both breasts in 1 year (for women over age 40). This patient's Lifetime Breast Cancer RIsk is estimated at 6.2 %. This mammogram was interpreted with the aid of an FDA-approved computer-aided dectection system. Electronically Signed By: Chadwick Woods MD 07/17/20 [id number]
== END ==
LOC: M WHC 15:26
PROVIDERS: ATTEND Family Medicine
DX: Z12.31 Encounter for screening mammogram for malignant neoplasm of breast (principal)

== ENCOUNTER → 2020-09-19 | Outpatient (REF) | payer MEDICARE, OTHER ==
[2020-09-19 10:50] LABS: ALBUMIN 3.4 GM/DL (3.2-5.2); ALT/SGPT 27 U/L (12-78); BILIRUBIN,TOTAL 0.3 MG/DL (0.2-1.0); BLOOD UREA NITROGEN 9 MG/DL (7-18); CALCIUM LEVEL 8.8 MG/DL (8.8-10.2); CARBON DIOXIDE LEVEL 28 MEQ/L (21-32); CHLORIDE LEVEL 106 MEQ/L (98-107); CREATININE FOR GFR 0.97 MG/DL (0.55-1.30); GLOMERULAR FILTRATION RATE > 60.0 (>45); GLUCOSE, FASTING 233 MG/DL (70-100); POTASSIUM SERUM 4.1 MEQ/L (3.5-5.1); SODIUM LEVEL 139 MEQ/L (136-145); TOTAL PROTEIN 7.1 GM/DL (6.4-8.2)
[2020-09-19 10:55] LABS: HEMOGLOBIN A1c 7.5 %
[2020-09-19 11:04] LABS: TOTAL 25(OH) VITAMIN D 60.5 NG/ML (30.0-100.0)
== END ==
LOC: M PLALAB 08:01
PROVIDERS: ATTEND Family Medicine
DX: E55.9 Vitamin D deficiency, unspecified (principal); E11.9 Type 2 diabetes mellitus without complications
CPT/HCPCS: 36415; 80053; 82306; 83036; G0463

== ENCOUNTER → 2021-01-31 | Outpatient (REF) | payer MEDICARE, OTHER ==
[2021-01-31 16:02] LABS: HEMOGLOBIN A1c 9.6 %
[2021-01-31 16:11] LABS: BLOOD UREA NITROGEN 8 MG/DL (7-18); CALCIUM LEVEL 8.9 MG/DL (8.8-10.2); CARBON DIOXIDE LEVEL 29 MEQ/L (21-32); CHLORIDE LEVEL 105 MEQ/L (98-107); CREATININE FOR GFR 0.86 MG/DL (0.55-1.30); GLOMERULAR FILTRATION RATE > 60.0 (>45); GLUCOSE, FASTING 258 MG/DL (70-100); POTASSIUM SERUM 3.8 MEQ/L (3.5-5.1); SODIUM LEVEL 140 MEQ/L (136-145)
[2021-01-31 16:24] LABS: MALB URINE SIEMENS 9.9 MG/L; MAU/CREAT RATIO 7.3 MCG/MG (0.0-30.0)
== END ==
LOC: M SFHCPLAZ 12:17
PROVIDERS: ATTEND Family Medicine
DX: E11.9 Type 2 diabetes mellitus without complications (principal)
CPT/HCPCS: 36415; 80048; 82043; 83036; G0463

== ENCOUNTER → 2021-06-06 | Outpatient (CLI) | payer MEDICARE, OTHER ==
[~2021-06-06] MED LIST changes: +ERGO500029 PO
[2021-06-06 17:31] LABS: HEMOGLOBIN A1c 9.9 %
== END ==
LOC: M PLALAB 15:44
PROVIDERS: ATTEND Family Medicine
DX: E11.9 Type 2 diabetes mellitus without complications (principal)

== ENCOUNTER → 2021-06-23 | Outpatient (CLI) | payer MEDICARE, OTHER ==
--- NOTE | 2021-06-23 09:54 | PFTRPT ---
Site: [facility], [address] [place] [address], [id number] ID: [id number] Name: AMINA POOLE Visit Date: 06/23/2021 Second ID: [id number] Referring Doctor: Melonie Quiroga MD Reviewing Doctor: Jaciel Evans MD Drain Cleaner: Nell MURILLO RRT Age: 61 : 1960 Sex: Female Race: Height: 64.00 Inches Weight: 230.00 Lbs BSA: 2.08 Order IDs: [id number] Requested Test(s): <RESP-PFT.PFT B/A> Diagnosis: J43.9 test meet the ATS standards for acceptability and repeatability. Pt was given four puffs of albuterol for post bronchodilator. Review Status: Not Reviewed Pre-Bronch Post-Bronch Pred Actual %Pred Actual %Chng SPIROMETRY FVC (L) 3.27 2.04 62 2.09 2 FEV1 (L) 2.52 1.71 67 1.80 4 FEV1/FVC (%) 78 84 107 86 2 FEF 25% (L/sec) 4.95 3.96 79 4.09 3 FEF 50% (L/sec) 3.59 2.96 82 3.42 15 FEF 75% (L/sec) 1.18 0.71 60 0.95 33 FEF 25-75% (L/sec) 2.29 1.98 86 2.48 24 FEF Max (L/sec) 6.22 5.43 87 4.75 -12 FIVC (L) 2.08 2.04 -1 FIF 50% (L/sec) 3.78 3.28 86 2.71 -17 FIF Max (L/sec) 3.40 3.13 -7 MVV (L/min) 91 54 59 Expiratory Time (sec) 6.97 6.17 -11 Back Extrap Vol (L) 0.06 0.07 17 Time To FEFmax (sec) 0.089 0.123 38 LUNG VOLUMES SVC (L) 3.04 2.33 76 IC (L) 2.19 2.05 93 ERV (L) 0.85 0.28 32 TGV (L) 2.86 2.56 89 RV (Pleth) (L) 2.01 2.28 113 TLC (Pleth) (L) 5.05 4.61 91 RV/TLC (Pleth) (%) 40 49 123 DIFFUSION DLCOunc (ml/min/mmHg) 21.48 13.51 62 DL/VA (ml/min/mmHg/L) 4.25 3.71 87 VA (L) 5.05 3.64 72 BHT (sec) 10.12 IVC (L) 2.03 TLC (SB) (L) 3.79 AIRWAYS RESISTANCE Raw (cmH2O/L/s) 1.86 1.56 84 Gaw (L/s/cmH2O) 1.03 0.64 62 sRaw (cmH2O*s) 4.76 3.67 77 sGaw (1/cmH2O*s) 0.20 0.27 137
== END ==
LOC: M CARPUL 07:58
PROVIDERS: ATTEND Family Medicine
DX: J43.9 Emphysema, unspecified (principal)

== ENCOUNTER → 2021-07-01 | Outpatient (CLI) | payer MEDICARE, OTHER ==
--- NOTE | 2021-07-01 16:28 | REP ---
INDICATION: NICOTINE DEPEND. COMPARISON: 06/13/2020 TECHNIQUE: Scans were obtained without contrast enhancement using low-dose technique FINDINGS: The lungs are clear. There are no lung nodules. There is no hilar or mediastinal adenopathy. No pleural fluid or thickening. Adrenal glands not enlarged. No interval change since the previous study IMPRESSION: Negative chest CT. Lung rads category 1. No nodule or suspicious abnormality. <Electronically signed by Yaya Benton > 07/01/21 1400
== END ==
LOC: M RAD 16:03
PROVIDERS: ATTEND Family Medicine
DX: F17.218 Nicotine dependence, cigarettes, with other nicotine-induced disorders (principal)

== ENCOUNTER → 2021-09-10 | Outpatient (CLI) | payer MEDICARE, OTHER ==
--- NOTE | 2021-09-10 14:54 | REPMRS ---
Patient History The patient states she has not had a clinical breast exam in over a year. No known family history of cancer. Benign lumpectomy of the left breast. Taking estrogen. Patient states no breast complaints today. Patient has signed MRS History Sheet. Digital Woman Screen Mammo: September 10, 2021 - Exam #: [id number] Bilateral CC and MLO view(s) were taken. Technologist: Karla Petit, Technologist Prior study comparison: June 27, 2020, bilateral digital woman screen mammo performed at [facility]. May 29, 2019, bilateral digital mammo screening bilat, performed at [facility]. FINDINGS: The breast tissue is almost entirely fat. Screening. Digital screening (2D) mammography was performed bilaterally in the CC and MLO projections. Additionally, breast tomosynthesis (3D mammography) was performed bilaterally in the CC and MLO projections. Todays exam was compared to the prior exam/exams. By history, the patient has no complaints of a palpable breast abnormality or other significant breast complaints. The breasts are unchanged in size and shape. There are no toya-soft tissue densities or spiculated masses. There is no internal architectural distortion. Once again, stable benign appearing calcifications are seen.There are no suspicious toya-calcific clusters. Skin thickening or nipple retraction is not present. IMPRESSION: BI-RADS Category 2- Benign Findings. There is no evidence of malignant alteration of the breasts. Followup examination recommended in one year. The Volpara volumetric breast density category is A, the breasts are almost entirely fatty. This mammogram was read with the assistance of [employer],an FDA approved computer aided detection system for mammography. The lifetime Tyrer-Cuzick score is 6 % Negative x-ray reports should not delay surgical consultation if a dominant or clinically suspicious mass is present. Not all breast cancers can be identified by mammography. Therefore, we recommend that you continue to perform regular breast self-examination and physical examination and then promptly contact your physician of any concerns or changes. Adenosis and dense breasts may obscure an underlying neoplasm. Assessment: BI-RADS/ACR category 2 mammogram. Benign Findings. Recommendation Routine screening mammogram of both breasts in 1 year. Electronically Signed By: Yaya Alvarado DO 09/10/21 [id number]
== END ==
LOC: M WHC 13:40
PROVIDERS: ATTEND Family Medicine
DX: Z12.31 Encounter for screening mammogram for malignant neoplasm of breast (principal); E87.6 Hypokalemia; E11.9 Type 2 diabetes mellitus without complications; Z86.018 Personal history of other benign neoplasm; Z92.23 Personal history of estrogen therapy; R92.1 Mammographic calcification found on diagnostic imaging of breast

== ENCOUNTER → 2021-09-10 | Outpatient (CLI) | payer MEDICARE, OTHER ==
[2021-09-10 17:35] LABS: BLOOD UREA NITROGEN 8 MG/DL (7-18); CALCIUM LEVEL 9.5 MG/DL (8.8-10.2); CARBON DIOXIDE LEVEL 28 MEQ/L (21-32); CHLORIDE LEVEL 106 MEQ/L (98-107); CREATININE FOR GFR 0.86 MG/DL (0.55-1.30); GLOMERULAR FILTRATION RATE > 60.0 (>45); GLUCOSE, FASTING 146 MG/DL (70-100); POTASSIUM SERUM 3.9 MEQ/L (3.5-5.1); SODIUM LEVEL 140 MEQ/L (136-145)
[2021-09-10 17:56] LABS: HEMOGLOBIN A1c 8.3 %
== END ==
LOC: M PLALAB 13:14
PROVIDERS: ATTEND Family Medicine
DX: E87.6 Hypokalemia (principal); E11.9 Type 2 diabetes mellitus without complications

== ENCOUNTER → 2022-01-05 | Outpatient (CLI) | payer MEDICARE, OTHER ==
[~2022-01-05] MED LIST changes: +POTA-149 PO; -POTA10TA16 PO
[2022-01-05 17:53] LABS: MALB URINE SIEMENS 17.6 MG/L; MAU/CREAT RATIO 6.9 MCG/MG (0.0-30.0)
[2022-01-05 18:05] LABS: BLOOD UREA NITROGEN 9 MG/DL (7-18); CALCIUM LEVEL 9.1 MG/DL (8.8-10.2); CARBON DIOXIDE LEVEL 27 MEQ/L (21-32); CHLORIDE LEVEL 103 MEQ/L (98-107); CREATININE FOR GFR 0.93 MG/DL (0.55-1.30); GLOMERULAR FILTRATION RATE > 60.0 (>45); GLUCOSE, FASTING 254 MG/DL (70-100); POTASSIUM SERUM 4.3 MEQ/L (3.5-5.1); SODIUM LEVEL 139 MEQ/L (136-145)
[2022-01-05 19:03] LABS: HEMOGLOBIN A1c 9.6 %
== END ==
LOC: M PLALAB 15:22
PROVIDERS: ATTEND Family Medicine
DX: E11.9 Type 2 diabetes mellitus without complications (principal)

== ENCOUNTER → 2022-08-07 | Outpatient (CLI) | payer MEDICARE, OTHER ==
[~2022-08-07] MED LIST changes: +BUPR-71 PO; -BUPR150T5 PO; +SIMV-252 PO; -ZOCO10TA PO
== END ==
LOC: M CARPUL 09:15
PROVIDERS: ATTEND Physician Assistant
DX: R06.02 Shortness of breath (principal)

== ENCOUNTER → 2022-09-01 | Outpatient (CLI) | payer MEDICARE, OTHER | LOC: M RAD 16:05 | PROVIDERS: ATTEND Internal Medicine Pulmonary Disease | DX: Z12.2 Encounter for screening for malignant neoplasm of respiratory organs (principal); F17.218 Nicotine dependence, cigarettes, with other nicotine-induced disorders ==

== ENCOUNTER → 2022-09-23 | Outpatient (CLI) | payer MEDICARE, OTHER | LOC: M WHC 15:59 | PROVIDERS: ATTEND Physician Assistant | DX: Z12.31 Encounter for screening mammogram for malignant neoplasm of breast (principal) ==

== ENCOUNTER → 2022-11-19 | Outpatient (CLI) | payer MEDICARE, OTHER ==
[~2022-11-19] MED LIST changes: +TOPI-254 PO; -TOPI50TA9 PO
[2022-11-19 18:24] LABS: BASO # 0.1 10^3/uL (0.0-0.2); BASO % 0.6 % (0.0-1.0); EOS # 0.1 10^3/uL (0.0-0.5); EOS % 0.8 % (0.0-3.0); HEMATOCRIT 49.2 % (36.0-47.0); HEMOGLOBIN 15.7 g/dl (12.0-15.5); LYMPH # 3.2 10^3/uL (1.5-5.0); LYMPH % 32.8 % (24.0-44.0); MEAN CORPUSCULAR HEMOGLOBIN 30.5 pg (27.0-33.0); MEAN CORPUSCULAR HGB CONC 31.9 g/dl (32.0-36.5); MEAN CORPUSCULAR VOLUME 95.5 fl (80.0-96.0); MONO # 0.6 10^3/uL (0.0-0.8); MONO % 6.5 % (2.0-8.0); NEUTROPHILS # 5.7 10^3/uL (1.5-8.5); NEUTROPHILS % 58.1 % (36.0-66.0); PLATELET COUNT, AUTOMATED 203 10^3/uL (150-450); RED BLOOD COUNT 5.15 10^6/uL (4.00-5.40); WHITE BLOOD COUNT 9.9 10^3/uL (4.0-10.0)
[2022-11-19 18:35] LABS: HEMOGLOBIN A1c 10.1 % (4.0-6.0)
[2022-11-19 18:53] LABS: ALBUMIN 3.3 G/DL (3.2-5.2); ALKALINE PHOSPHATASE 120 U/L (46-116); ALT/SGPT 16 U/L (7.0-40); AST/SGOT 27 U/L (<34); BILIRUBIN,TOTAL 0.4 MG/DL (0.3-1.2); BLOOD UREA NITROGEN 9 MG/DL (9-23); CALCIUM LEVEL 9.4 MG/DL (8.3-10.6); CARBON DIOXIDE LEVEL 27 MMOL/L (20-31); CHLORIDE LEVEL 102 MMOL/L (98-107); CREATININE FOR GFR 0.85 MG/DL (0.55-1.30); GLOMERULAR FILTRATION RATE > 60.0 (>45); GLUCOSE, FASTING 285 MG/DL (74-106); POTASSIUM SERUM 3.9 MMOL/L (3.5-5.1); SODIUM LEVEL 138 MMOL/L (136-145); TOTAL PROTEIN 6.9 G/DL (5.7-8.2)
== END ==
LOC: M PLALAB 15:22
PROVIDERS: ATTEND Physician Assistant
DX: E11.9 Type 2 diabetes mellitus without complications (principal)

== ENCOUNTER → 2023-03-04 | Outpatient (REF) | payer MEDICARE, OTHER | LOC: M SFHCPLAZ 15:56 | PROVIDERS: ATTEND Physician Assistant | DX: R05.1 Acute cough (principal); R19.7 Diarrhea, unspecified ==

== ENCOUNTER → 2023-03-04 | Outpatient (CLI) | payer MEDICARE, OTHER ==
[2023-03-04 18:18] LABS: BASO # 0.1 10^3/uL (0.0-0.2); BASO % 0.6 % (0.0-1.0); EOS # 0.1 10^3/uL (0.0-0.5); EOS % 0.7 % (0.0-3.0); HEMATOCRIT 46.2 % (36.0-47.0); LYMPH # 3.2 10^3/uL (1.5-5.0); LYMPH % 30.9 % (24.0-44.0); MEAN CORPUSCULAR HEMOGLOBIN 31.1 pg (27.0-33.0); MEAN CORPUSCULAR HGB CONC 32.5 g/dl (32.0-36.5); MEAN CORPUSCULAR VOLUME 95.9 fl (80.0-96.0); MONO # 0.6 10^3/uL (0.0-0.8); MONO % 6.1 % (2.0-8.0); NEUTROPHILS # 6.4 10^3/uL (1.5-8.5); NEUTROPHILS % 61.2 % (36.0-66.0); PLATELET COUNT, AUTOMATED 211 10^3/uL (150-450); RED BLOOD COUNT 4.82 10^6/uL (4.00-5.40); WHITE BLOOD COUNT 10.4 10^3/uL (4.0-10.0)
[2023-03-04 18:44] LABS: ALBUMIN 3.1 G/DL (3.2-5.2); ALKALINE PHOSPHATASE 102 U/L (46-116); ALT/SGPT 18 U/L (7.0-40); AST/SGOT 20 U/L (<34); BILIRUBIN,TOTAL 0.4 MG/DL (0.3-1.2); BLOOD UREA NITROGEN 6 MG/DL (9-23); CALCIUM LEVEL 8.8 MG/DL (8.3-10.6); CARBON DIOXIDE LEVEL 27 MMOL/L (20-31); CHLORIDE LEVEL 105 MMOL/L (98-107); CREATININE FOR GFR 0.74 MG/DL (0.55-1.30); GLOMERULAR FILTRATION RATE > 60.0 (>45); GLUCOSE, FASTING 150 MG/DL (74-106); POTASSIUM SERUM 3.6 MMOL/L (3.5-5.1); SODIUM LEVEL 140 MMOL/L (136-145); TOTAL PROTEIN 6.7 G/DL (5.7-8.2)
[2023-03-04 18:46] LABS: THYROID STIMULATING HORMONE 1.736 uIU/ML (0.55-4.78)
[2023-03-04 20:17] LABS: HEMOGLOBIN A1c 8.4 % (4.0-6.0)
== END ==
LOC: M PLALAB 16:14
PROVIDERS: ATTEND Physician Assistant
DX: R05.1 Acute cough (principal); R19.7 Diarrhea, unspecified; Z79.899 Other long term (current) drug therapy

== ENCOUNTER → 2023-05-14 | Outpatient (CLI) | payer MEDICARE, OTHER ==
[2023-05-14 18:25] LABS: ALBUMIN 3.2 G/DL (3.2-5.2); ALKALINE PHOSPHATASE 125 U/L (46-116); ALT/SGPT 21 U/L (7.0-40); AST/SGOT 22 U/L (<34); BILIRUBIN,TOTAL 0.3 MG/DL (0.3-1.2); BLOOD UREA NITROGEN 7 MG/DL (9-23); CALCIUM LEVEL 8.3 MG/DL (8.3-10.6); CARBON DIOXIDE LEVEL 26 MMOL/L (20-31); CHLORIDE LEVEL 106 MMOL/L (98-107); CREATININE FOR GFR 0.72 MG/DL (0.55-1.30); GLOMERULAR FILTRATION RATE > 60.0 (>45); GLUCOSE, FASTING 195 MG/DL (74-106); POTASSIUM SERUM 3.6 MMOL/L (3.5-5.1); SODIUM LEVEL 140 MMOL/L (136-145); TOTAL PROTEIN 6.6 G/DL (5.7-8.2)
[2023-05-14 19:03] LABS: HEMOGLOBIN A1c 8.1 % (4.0-6.0)
== END ==
LOC: M PLALAB 15:28
PROVIDERS: ATTEND Physician Assistant
DX: E11.9 Type 2 diabetes mellitus without complications (principal)

== ENCOUNTER → 2023-09-24 | Outpatient (CLI) | payer MEDICARE, OTHER | LOC: M RAD 16:45 | PROVIDERS: ATTEND Internal Medicine Pulmonary Disease | DX: Z12.2 Encounter for screening for malignant neoplasm of respiratory organs (principal); F17.218 Nicotine dependence, cigarettes, with other nicotine-induced disorders ==

== ENCOUNTER → 2023-10-20 | Outpatient (CLI) | payer MEDICARE, OTHER ==
[~2023-10-20] MED LIST changes: +TOPI-21 PO; -TOPI-254 PO
== END ==
LOC: M WHC 15:59
PROVIDERS: ATTEND Physician Assistant
DX: Z12.31 Encounter for screening mammogram for malignant neoplasm of breast (principal)

== ENCOUNTER → 2023-10-20 | Outpatient (CLI) | payer MEDICARE, OTHER ==
[2023-10-20 17:21] LABS: HEMOGLOBIN A1c 8.5 % (4.0-6.0)
[2023-10-20 17:41] LABS: ALBUMIN 3.4 G/DL (3.2-5.2); ALKALINE PHOSPHATASE 120 U/L (46-116); ALT/SGPT 17 U/L (7.0-40); AST/SGOT 17 U/L (<34); BILIRUBIN,TOTAL 0.4 MG/DL (0.3-1.2); BLOOD UREA NITROGEN 9 MG/DL (9-23); CARBON DIOXIDE LEVEL 27 MMOL/L (20-31); CHLORIDE LEVEL 104 MMOL/L (98-107); CHOLESTEROL LEVEL 212 MG/DL (<200); CHOLESTEROL RISK RATIO 4.84 (<5); CREATININE FOR GFR 0.78 MG/DL (0.55-1.30); GLOMERULAR FILTRATION RATE > 60.0 (>45); GLUCOSE, FASTING 198 MG/DL (74-106); HDL CHOLESTEROL 43.8 MG/DL (>40); NON-HDL-C 168.2 MG/DL; POTASSIUM SERUM 3.7 MMOL/L (3.5-5.1); SODIUM LEVEL 140 MMOL/L (136-145); TOTAL PROTEIN 7.2 G/DL (5.7-8.2); TRIGLYCERIDES LEVEL 191 MG/DL (<150)
[2023-10-20 17:54] LABS: BASO # 0.1 10^3/uL (0.0-0.2); BASO % 0.6 % (0.0-1.0); EOS # 0.1 10^3/uL (0.0-0.5); EOS % 0.5 % (0.0-3.0); HEMATOCRIT 48.4 % (36.0-47.0); HEMOGLOBIN 15.8 g/dl (12.0-15.5); LYMPH # 3.1 10^3/uL (1.5-5.0); LYMPH % 29.3 % (24.0-44.0); MEAN CORPUSCULAR HEMOGLOBIN 31.2 pg (27.0-33.0); MEAN CORPUSCULAR HGB CONC 32.6 g/dl (32.0-36.5); MEAN CORPUSCULAR VOLUME 95.7 fl (80.0-96.0); MONO # 0.6 10^3/uL (0.0-0.8); MONO % 5.9 % (2.0-8.0); NEUTROPHILS # 6.6 10^3/uL (1.5-8.5); NEUTROPHILS % 63.3 % (36.0-66.0); PLATELET COUNT, AUTOMATED 226 10^3/uL (150-450); RED BLOOD COUNT 5.06 10^6/uL (4.00-5.40); WHITE BLOOD COUNT 10.4 10^3/uL (4.0-10.0)
== END ==
LOC: M PLALAB 16:03
PROVIDERS: ATTEND Physician Assistant
DX: E78.5 Hyperlipidemia, unspecified (principal); E11.9 Type 2 diabetes mellitus without complications

== ENCOUNTER → 2024-04-03 | Outpatient (CLI) | payer MEDICARE, OTHER ==
[2024-04-03 17:30] LABS: BASO # 0.1 10^3/uL (0.0-0.2); BASO % 0.8 % (0.0-1.0); EOS # 0.1 10^3/uL (0.0-0.5); EOS % 0.7 % (0.0-3.0); HEMATOCRIT 46.3 % (36.0-47.0); LYMPH # 2.8 10^3/uL (1.5-5.0); LYMPH % 31.1 % (24.0-44.0); MEAN CORPUSCULAR HEMOGLOBIN 30.6 pg (27.0-33.0); MEAN CORPUSCULAR HGB CONC 32.4 g/dl (32.0-36.5); MEAN CORPUSCULAR VOLUME 94.5 fl (80.0-96.0); MONO # 0.6 10^3/uL (0.0-0.8); NEUTROPHILS # 5.4 10^3/uL (1.5-8.5); NEUTROPHILS % 60.1 % (36.0-66.0); PLATELET COUNT, AUTOMATED 185 10^3/uL (150-450); WHITE BLOOD COUNT 8.9 10^3/uL (4.0-10.0)
[2024-04-03 18:03] LABS: ALBUMIN 3.2 G/DL (3.2-5.2); ALKALINE PHOSPHATASE 117 U/L (46-116); ALT/SGPT 22 U/L (7.0-40); AST/SGOT 20 U/L (<34); BILIRUBIN,TOTAL 0.4 MG/DL (0.3-1.2); BLOOD UREA NITROGEN 10 MG/DL (9-23); CALCIUM LEVEL 8.6 MG/DL (8.3-10.6); CARBON DIOXIDE LEVEL 24 MMOL/L (20-31); CHLORIDE LEVEL 104 MMOL/L (98-107); CHOLESTEROL LEVEL 209 MG/DL (<200); CHOLESTEROL RISK RATIO 5.08 (<5); CREATININE FOR GFR 0.75 MG/DL (0.55-1.30); GLOMERULAR FILTRATION RATE > 60.0 (>45); GLUCOSE, FASTING 241 MG/DL (74-106); HDL CHOLESTEROL 41.1 MG/DL (>40); LDL CHOLESTEROL 133.9 MG/DL (<100); NON-HDL-C 167.9 MG/DL; POTASSIUM SERUM 3.6 MMOL/L (3.5-5.1); SODIUM LEVEL 137 MMOL/L (136-145); TOTAL PROTEIN 6.6 G/DL (5.7-8.2); TRIGLYCERIDES LEVEL 170 MG/DL (<150)
[2024-04-03 18:04] LABS: TOTAL 25(OH) VITAMIN D 84.4 NG/ML (20.0-100.0)
[2024-04-03 18:10] LABS: HEMOGLOBIN A1c 7.5 % (4.0-6.0)
== END ==
LOC: M PLALAB 14:02
PROVIDERS: ATTEND Physician Assistant
DX: E11.69 Type 2 diabetes mellitus with other specified complication (principal); E55.9 Vitamin D deficiency, unspecified; E78.5 Hyperlipidemia, unspecified

== ENCOUNTER 2024-06-29 14:26 | Emergency (ER) | payer MEDICARE, OTHER ==
[~2024-06-29] VITALS: Ht 162.6 cm; Wt 92.7 kg
[2024-06-29] MEDS ORDERED: LANTINJ4 (16:31)
[2024-06-29] MEDS ORDERED: DULA4.5P (16:31)
[2024-06-29] MEDS ORDERED: HYDR-4433 (16:31)
[2024-06-29] MEDS ORDERED: LEXA1TAB (16:31)
[2024-06-29 17:11] LABS: BASO # 0.1 10^3/uL (0.0-0.2); BASO % 0.5 % (0.0-1.0); EOS # 0.1 10^3/uL (0.0-0.5); EOS % 0.5 % (0.0-3.0); HEMATOCRIT 48.7 % (36.0-47.0); HEMOGLOBIN 16.2 g/dl (12.0-15.5); LYMPH # 3.7 10^3/uL (1.5-5.0); LYMPH % 27.7 % (24.0-44.0); MEAN CORPUSCULAR HGB CONC 33.3 g/dl (32.0-36.5); MEAN CORPUSCULAR VOLUME 93.1 fl (80.0-96.0); MONO # 0.8 10^3/uL (0.0-0.8); MONO % 6.3 % (2.0-8.0); NEUTROPHILS # 8.6 10^3/uL (1.5-8.5); NEUTROPHILS % 64.5 % (36.0-66.0); PLATELET COUNT, AUTOMATED 200 10^3/uL (150-450); RED BLOOD COUNT 5.23 10^6/uL (4.00-5.40); WHITE BLOOD COUNT 13.2 10^3/uL (4.0-10.0)
[2024-06-29 17:33] LABS: BLOOD UREA NITROGEN 12 MG/DL (9-23); CALCIUM LEVEL 9.2 MG/DL (8.3-10.6); CARBON DIOXIDE LEVEL 28 MMOL/L (20-31); CHLORIDE LEVEL 107 MMOL/L (98-107); CREATININE FOR GFR 0.79 MG/DL (0.55-1.30); GLOMERULAR FILTRATION RATE > 60.0 (>45); GLUCOSE, FASTING 157 MG/DL (74-106); POTASSIUM SERUM 4.2 MMOL/L (3.5-5.1); SODIUM LEVEL 140 MMOL/L (136-145)
[2024-06-29] MEDS: KETOROLAC 30 MG/ML 1ML VIAL IV ONE (18:57)
[2024-06-29] MEDS: methylPREDNISolone 125MG 2ML VIAL IV ONE (18:58)
[2024-06-29] MEDS: methocarbamoL 500 MG TAB PO ONE (19:01)
[2024-06-29] MEDS: MORPHINE 4 MG/ML 1ML VIAL IV ONE (23:51)
[2024-06-30 01:58] VITALS: BP 125/66; TEMP 96.8
[2024-06-30 02:04] VITALS: O2SAT 93
[2024-06-30] MEDS: MORPHINE 4 MG/ML 1ML VIAL IV ONE (02:04)
== END 2024-06-30 02:11 | disposition short-term general hospital (02) ==
LOC: M ED 14:26
DX: M51.16 Intervertebral disc disorders with radiculopathy, lumbar region (principal); M48.061 Spinal stenosis, lumbar region without neurogenic claudication; E11.9 Type 2 diabetes mellitus without complications; J44.9 Chronic obstructive pulmonary disease, unspecified; K21.9 Gastro-esophageal reflux disease without esophagitis; K57.92 Diverticulitis of intestine, part unspecified, without perforation or abscess without bleeding; K52.9 Noninfective gastroenteritis and colitis, unspecified; Z86.73 Personal history of transient ischemic attack (TIA), and cerebral infarction without residual deficits; M54.9 Dorsalgia, unspecified; G43.909 Migraine, unspecified, not intractable, without status migrainosus; F17.200 Nicotine dependence, unspecified, uncomplicated; Z79.82 Long term (current) use of aspirin; Z79.899 Other long term (current) drug therapy; Z88.8 Allergy status to other drugs, medicaments and biological substances; Z91.041 Radiographic dye allergy status
CPT/HCPCS: 72148; 73502; 80048; 81001; 85025; 96374; 96375; 96376; 99284; J1885; J2919

== ENCOUNTER → 2024-07-07 | Outpatient (REF) ==
[~2024-07-07] MED LIST changes: +DULA4.5P; +HYDR-4433; +LANTINJ4; +LEXA1TAB
[2024-07-07 08:55] LABS: HEMATOCRIT 42.9 % (36.0-47.0); HEMOGLOBIN 13.8 g/dl (12.0-15.5); MEAN CORPUSCULAR HEMOGLOBIN 30.9 pg (27.0-33.0); MEAN CORPUSCULAR HGB CONC 32.2 g/dl (32.0-36.5); PLATELET COUNT, AUTOMATED 169 10^3/uL (150-450); RED BLOOD COUNT 4.47 10^6/uL (4.00-5.40); WHITE BLOOD COUNT 11.8 10^3/uL (4.0-10.0)
[2024-07-07 09:27] LABS: BLOOD UREA NITROGEN 12 MG/DL (9-23); CALCIUM LEVEL 8.7 MG/DL (8.3-10.6); CARBON DIOXIDE LEVEL 34 MMOL/L (20-31); CHLORIDE LEVEL 107 MMOL/L (98-107); CREATININE FOR GFR 0.79 MG/DL (0.55-1.30); GLOMERULAR FILTRATION RATE > 60.0 (>45); GLUCOSE, FASTING 120 MG/DL (74-106); POTASSIUM SERUM 4.2 MMOL/L (3.5-5.1); SODIUM LEVEL 143 MMOL/L (136-145)
== END ==
PROVIDERS: ATTEND Physician Assistant
DX: E11.9 Type 2 diabetes mellitus without complications (principal)

== ENCOUNTER → 2024-07-17 | Outpatient (REF) ==
[2024-07-17 12:30] LABS: HEMATOCRIT 42.6 % (36.0-47.0); HEMOGLOBIN 13.7 g/dl (12.0-15.5); MEAN CORPUSCULAR HEMOGLOBIN 30.8 pg (27.0-33.0); MEAN CORPUSCULAR HGB CONC 32.2 g/dl (32.0-36.5); MEAN CORPUSCULAR VOLUME 95.7 fl (80.0-96.0); PLATELET COUNT, AUTOMATED 160 10^3/uL (150-450); RED BLOOD COUNT 4.45 10^6/uL (4.00-5.40); WHITE BLOOD COUNT 9.9 10^3/uL (4.0-10.0)
[2024-07-17 12:59] LABS: BLOOD UREA NITROGEN 16 MG/DL (9-23); CALCIUM LEVEL 8.7 MG/DL (8.3-10.6); CARBON DIOXIDE LEVEL 28 MMOL/L (20-31); CHLORIDE LEVEL 105 MMOL/L (98-107); CREATININE FOR GFR 0.77 MG/DL (0.55-1.30); GLOMERULAR FILTRATION RATE > 60.0 (>45); GLUCOSE, FASTING 357 MG/DL (74-106); POTASSIUM SERUM 4.1 MMOL/L (3.5-5.1); SODIUM LEVEL 137 MMOL/L (136-145)
== END ==
PROVIDERS: ATTEND Physician Assistant
DX: I10 Essential (primary) hypertension (principal)

== ENCOUNTER → 2024-07-24 | Outpatient (REF) | PROVIDERS: ATTEND Physician Assistant | DX: I50.9 Heart failure, unspecified (principal); Z53.8 Procedure and treatment not carried out for other reasons ==

== ENCOUNTER → 2024-09-15 | Outpatient (CLI) | payer MEDICARE, OTHER ==
[2024-09-15 19:19] LABS: BASO # 0.1 10^3/uL (0.0-0.2); BASO % 0.6 % (0.0-1.0); EOS # 0.1 10^3/uL (0.0-0.5); EOS % 0.9 % (0.0-3.0); HEMATOCRIT 44.3 % (36.0-47.0); HEMOGLOBIN 14.4 g/dl (12.0-15.5); LYMPH # 3.8 10^3/uL (1.5-5.0); LYMPH % 37.8 % (24.0-44.0); MEAN CORPUSCULAR HEMOGLOBIN 30.9 pg (27.0-33.0); MEAN CORPUSCULAR HGB CONC 32.5 g/dl (32.0-36.5); MEAN CORPUSCULAR VOLUME 95.1 fl (80.0-96.0); MONO # 0.8 10^3/uL (0.0-0.8); MONO % 7.8 % (2.0-8.0); NEUTROPHILS # 5.3 10^3/uL (1.5-8.5); NEUTROPHILS % 52.4 % (36.0-66.0); PLATELET COUNT, AUTOMATED 195 10^3/uL (150-450); RED BLOOD COUNT 4.66 10^6/uL (4.00-5.40)
[2024-09-15 19:49] LABS: ALKALINE PHOSPHATASE 114 U/L (35-104); ALT/SGPT 15 U/L (7.0-40); AST/SGOT 11 U/L (<34); BILIRUBIN,TOTAL 0.3 MG/DL (0.3-1.2); BLOOD UREA NITROGEN 8 MG/DL (9-23); CALCIUM LEVEL 9.1 MG/DL (8.3-10.6); CARBON DIOXIDE LEVEL 26 MMOL/L (20-31); CHLORIDE LEVEL 110 MMOL/L (98-107); CHOLESTEROL LEVEL 205 MG/DL (<200); CHOLESTEROL RISK RATIO 5.55 (<5); CREATININE FOR GFR 0.79 MG/DL (0.55-1.30); GLOMERULAR FILTRATION RATE > 60.0 (>45); GLUCOSE, FASTING 252 MG/DL (74-106); HDL CHOLESTEROL 36.9 MG/DL (>40); LDL CHOLESTEROL 116.9 MG/DL (<100); NON-HDL-C 168.1 MG/DL; POTASSIUM SERUM 3.5 MMOL/L (3.5-5.1); SODIUM LEVEL 142 MMOL/L (136-145); TOTAL PROTEIN 6.5 G/DL (5.7-8.2); TRIGLYCERIDES LEVEL 256 MG/DL (<150)
[2024-09-15 19:51] LABS: CREATININE, URINE 155.3 MG/DL
[2024-09-15 19:53] LABS: MALB URINE SIEMENS < 3.0 MG/L; MAU/CREAT RATIO 1.9 MCG/MG (0.0-30.0)
[2024-09-15 20:06] LABS: HEMOGLOBIN A1c 7.7 % (4.0-6.0)
== END ==
LOC: M PLALAB 15:26
PROVIDERS: ATTEND Physician Assistant
DX: E11.69 Type 2 diabetes mellitus with other specified complication (principal); E78.5 Hyperlipidemia, unspecified

== ENCOUNTER → 2024-10-30 | Outpatient (CLI) | payer MEDICARE, OTHER | LOC: M WHC 16:06 | PROVIDERS: ATTEND Physician Assistant | DX: Z12.31 Encounter for screening mammogram for malignant neoplasm of breast (principal); R92.323 Mammographic fibroglandular density, bilateral breasts; E66.01 Morbid (severe) obesity due to excess calories; E78.5 Hyperlipidemia, unspecified; E11.69 Type 2 diabetes mellitus with other specified complication; E55.9 Vitamin D deficiency, unspecified ==

== ENCOUNTER → 2024-10-30 | Outpatient (CLI) | payer MEDICARE, OTHER ==
[2024-10-30 19:15] LABS: HEMATOCRIT 47.7 % (36.0-47.0); HEMOGLOBIN 15.5 g/dl (12.0-15.5); MEAN CORPUSCULAR HEMOGLOBIN 30.6 pg (27.0-33.0); MEAN CORPUSCULAR HGB CONC 32.5 g/dl (32.0-36.5); MEAN CORPUSCULAR VOLUME 94.1 fl (80.0-96.0); PLATELET COUNT, AUTOMATED 213 10^3/uL (150-450); RED BLOOD COUNT 5.07 10^6/uL (4.00-5.40); WHITE BLOOD COUNT 10.4 10^3/uL (4.0-10.0)
[2024-10-30 19:29] LABS: HEMOGLOBIN A1c 8.2 % (4.0-6.0)
[2024-10-30 19:45] LABS: ALBUMIN 3.1 G/DL (3.2-5.2); ALKALINE PHOSPHATASE 143 U/L (35-104); ALT/SGPT 22 U/L (7.0-40); AST/SGOT 21 U/L (<34); BILIRUBIN,TOTAL 0.5 MG/DL (0.3-1.2); BLOOD UREA NITROGEN 8 MG/DL (9-23); CALCIUM LEVEL 9.4 MG/DL (8.3-10.6); CARBON DIOXIDE LEVEL 28 MMOL/L (20-31); CHLORIDE LEVEL 107 MMOL/L (98-107); CHOLESTEROL LEVEL 233 MG/DL (<200); CHOLESTEROL RISK RATIO 5.44 (<5); GLOMERULAR FILTRATION RATE > 60.0 (>45); GLUCOSE, FASTING 237 MG/DL (74-106); HDL CHOLESTEROL 42.8 MG/DL (>40); LDL CHOLESTEROL 148.2 MG/DL (<100); NON-HDL-C 190.2 MG/DL; POTASSIUM SERUM 4.3 MMOL/L (3.5-5.1); SODIUM LEVEL 142 MMOL/L (136-145); TRIGLYCERIDES LEVEL 210 MG/DL (<150)
[2024-10-30 19:46] LABS: TOTAL 25(OH) VITAMIN D 79.3 NG/ML (20.0-100.0)
== END ==
LOC: M PLALAB 16:10
PROVIDERS: ATTEND Nurse Practitioner Family
DX: E66.01 Morbid (severe) obesity due to excess calories (principal); E78.5 Hyperlipidemia, unspecified; E11.69 Type 2 diabetes mellitus with other specified complication; E55.9 Vitamin D deficiency, unspecified

== ENCOUNTER → 2024-12-07 | Outpatient (CLI) | payer MEDICARE, OTHER | LOC: M RAD 15:20 | PROVIDERS: ATTEND Internal Medicine Pulmonary Disease | DX: Z12.2 Encounter for screening for malignant neoplasm of respiratory organs (principal); R91.1 Solitary pulmonary nodule; F17.218 Nicotine dependence, cigarettes, with other nicotine-induced disorders ==

== ENCOUNTER → 2025-03-12 | Outpatient (CLI) | payer MEDICARE, OTHER ==
[2025-03-12 18:06] LABS: HEMOGLOBIN A1c 8.9 % (4.0-6.0)
== END ==
LOC: M PLALAB 14:31
PROVIDERS: ATTEND Nurse Practitioner Family
DX: E11.69 Type 2 diabetes mellitus with other specified complication (principal)

== ENCOUNTER → 2025-05-22 | Outpatient (REF) | payer MEDICARE, OTHER ==
[~2025-05-22] MED LIST changes: +ALBU8.5H; +AMOX875T2 PO; +EZET10TA21; +FAMO1TAB11; +FLUC150T9 PO; +SEMA2PEN
== END ==
LOC: M SFHCPLAZ 10:59
PROVIDERS: ATTEND Nurse Practitioner Family
DX: R19.7 Diarrhea, unspecified (principal); R82.90 Unspecified abnormal findings in urine; R10.817 Generalized abdominal tenderness

== ENCOUNTER → 2025-05-29 | Outpatient (CLI) | payer MEDICARE, OTHER ==
[~2025-05-29] MED LIST changes: -ALBU8.5H; +ALBU8.5H PO; +ESTR1CRE VA; -EZET10TA21; +EZET10TA21 PO; -FAMO1TAB11; +FAMO1TAB11 PO; -HYDR-4433; +HYDR-4433 PO; +ISOVUE-370 76% 100 ML VIAL As Ordered ONE; +MECL-209 PO; +MECL-86 PO; +TIZA10TA PO; +VENL37.598 PO
== END ==
LOC: M RAD 07:34
PROVIDERS: ATTEND Nurse Practitioner Family
DX: R07.89 Other chest pain (principal)

== ENCOUNTER → 2025-06-01 | Outpatient (CLI) | payer MEDICARE, OTHER ==
[~2025-06-01] MED LIST changes: +ALBU8.5H; -ALBU8.5H PO; -ESTR1CRE VA; +EZET10TA21; -EZET10TA21 PO; +FAMO1TAB11; -FAMO1TAB11 PO; +HYDR-4433; -HYDR-4433 PO; -ISOVUE-370 76% 100 ML VIAL As Ordered ONE; -MECL-209 PO; -MECL-86 PO; +PROHANCE 279.3MG/ML 15ML VIAL As Ordered ONE; +PROHANCE 279.3MG/ML 5ML VIAL As Ordered ONE; -TIZA10TA PO; -VENL37.598 PO
== END ==
LOC: M RAD 06:31
PROVIDERS: ATTEND Nurse Practitioner Family
DX: R93.5 Abnormal findings on diagnostic imaging of other abdominal regions, including retroperitoneum (principal); N28.9 Disorder of kidney and ureter, unspecified; N89.8 Other specified noninflammatory disorders of vagina; I67.82 Cerebral ischemia
CPT/HCPCS: 70551; 74183; A9576

== ENCOUNTER 2025-06-07 16:25 | Emergency (ER) | payer MEDICARE, OTHER ==
[~2025-06-07] VITALS: Ht 160 cm; Wt 71.9 kg
[~2025-06-07 16:25] MED LIST changes: -ALBU8.5H; +ALBU8.5H PO; -EZET10TA21; +EZET10TA21 PO; -FAMO1TAB11; +FAMO1TAB11 PO; -HYDR-4433; +HYDR-4433 PO; -PROHANCE 279.3MG/ML 15ML VIAL As Ordered ONE; -PROHANCE 279.3MG/ML 5ML VIAL As Ordered ONE
[2025-06-07] MEDS ORDERED: ISOVUE-370 76% 100 ML VIAL As Ordered ONE (17:27)
[2025-06-07 18:03] LABS: BASO # 0.1 10^3/uL (0.0-0.2); BASO % 0.5 % (0.0-1.0); EOS # 0.0 10^3/uL (0.0-0.5); EOS % 0.2 % (0.0-3.0); LYMPH # 2.9 10^3/uL (1.5-5.0); LYMPH % 27.2 % (24.0-44.0); MONO # 0.8 10^3/uL (0.0-0.8); MONO % 7.1 % (2.0-8.0); NEUTROPHILS # 6.9 10^3/uL (1.5-8.5); NEUTROPHILS % 64.5 % (36.0-66.0); PLATELET COUNT, AUTOMATED 176 10^3/uL (150-450)
[2025-06-07 18:15] LABS: INR 0.97
[2025-06-07 18:30] LABS: CK-MB VALUE MASS 1.2 NG/ML (<3.6)
[2025-06-07 18:35] LABS: FREE T4 1.16 NG/DL (0.89-1.76)
[2025-06-07 18:36] LABS: CPK CREATINE PHOSPHOKINASE 43 U/L (34-145); MB/CK RELATIVE INDEX 2.79 (< OR =4)
[2025-06-07 18:38] LABS: ALT/SGPT 26 U/L (7.0-40); AST/SGOT 27 U/L (<34); CALCIUM LEVEL 8.8 MG/DL (8.3-10.6); CARBON DIOXIDE LEVEL 28 MMOL/L (20-31); CHLORIDE LEVEL 102 MMOL/L (98-107); CREATININE FOR GFR 0.88 MG/DL (0.55-1.30); GLOMERULAR FILTRATION RATE 72.9 (>45); POTASSIUM SERUM 3.4 MMOL/L (3.5-5.1); SODIUM LEVEL 144 MMOL/L (136-145)
[2025-06-07] MEDS ORDERED: VENL37.598 PO (19:20)
[2025-06-07] MEDS ORDERED: TIZA10TA PO (19:20)
[2025-06-07] MEDS ORDERED: ESTR1CRE VA (19:20)
[2025-06-07 19:25] LABS: CK-MB VALUE MASS 1.0 NG/ML (<3.6)
[2025-06-07] MEDS ORDERED: HOME MED LIST COMPLETE! XX SCH (19:25)
[2025-06-07 19:26] LABS: CPK CREATINE PHOSPHOKINASE 30 U/L (34-145); MB/CK RELATIVE INDEX 3.33 (< OR =4)
[2025-06-07] MEDS: MECLIZINE 25 MG TABLET PO ONE (22:48)
[2025-06-07] MEDS: clonazePAM 0.5 MG TAB PO ONE (22:48)
[2025-06-07] MEDS: HYDROcodone/APAP LIQUID 7.5-325 MG 15 ML UDC PO ONE (22:48)
[2025-06-07] MEDS: TOPIRAMATE 100 MG TAB PO ONE (22:48)
[2025-06-07] MEDS: PANTOPRAZOLE 40MG TAB PO ONE (22:48)
[2025-06-07] MEDS: POTASSIUM CHLORIDE 10MEQ SR TABLET PO ONE (22:48)
[2025-06-07] MEDS: NS (Normal Saline) 0.9% 1,000 ML IV ONE (22:49)
[2025-06-08] MEDS ORDERED: MECLIZINE 25 MG TABLET PO ONE (09:00)
[2025-06-08] MEDS: MECLIZINE 25 MG TABLET PO ONE (09:02)
[2025-06-08] MEDS ORDERED: MECL-209 PO (09:22)
[2025-06-08 09:30] VITALS: BP 102/50; TEMP 97; O2SAT 96
== END 2025-06-08 09:40 | disposition home or self-care (01) ==
LOC: M ED 16:25
DX: R07.9 Chest pain, unspecified (principal); R42 Dizziness and giddiness; E11.9 Type 2 diabetes mellitus without complications; Z86.73 Personal history of transient ischemic attack (TIA), and cerebral infarction without residual deficits; F32.A Depression, unspecified; F41.0 Panic disorder [episodic paroxysmal anxiety]; G47.30 Sleep apnea, unspecified; Z87.01 Personal history of pneumonia (recurrent); K21.9 Gastro-esophageal reflux disease without esophagitis; K57.92 Diverticulitis of intestine, part unspecified, without perforation or abscess without bleeding; Z85.528 Personal history of other malignant neoplasm of kidney; Z79.82 Long term (current) use of aspirin; Z79.899 Other long term (current) drug therapy; Z88.8 Allergy status to other drugs, medicaments and biological substances; Z91.041 Radiographic dye allergy status; Z91.89 Other specified personal risk factors, not elsewhere classified
CPT/HCPCS: 70450; 70544; 70547; 70551; 71045; 80047; 80048; 80076; 82550; 82553; 84439; 84443; 84484; 85025; 85610; 85730; 86850; 86900; 86901; 93005; 93041; 94660; 94760; 96360; 96361; 97116; 97161; 99285; Q9967

== ENCOUNTER 2025-06-11 09:15 | Emergency (ER) | payer MEDICARE, OTHER ==
[~2025-06-11] VITALS: Ht 162.6 cm; Wt 84.5 kg
[~2025-06-11 09:15] MED LIST changes: -MECL-86 PO
[2025-06-11 10:08] LABS: BASO # 0.1 10^3/uL (0.0-0.2); BASO % 0.5 % (0.0-1.0); EOS # 0.1 10^3/uL (0.0-0.5); EOS % 0.3 % (0.0-3.0); LYMPH # 3.7 10^3/uL (1.5-5.0); LYMPH % 25.3 % (24.0-44.0); MONO # 0.8 10^3/uL (0.0-0.8); MONO % 5.7 % (2.0-8.0); NEUTROPHILS # 10.0 10^3/uL (1.5-8.5); NEUTROPHILS % 67.8 % (36.0-66.0); PLATELET COUNT, AUTOMATED 184 10^3/uL (150-450)
[2025-06-11 10:29] LABS: ALT/SGPT 26.0 U/L (7.0-40); AST/SGOT 32.0 U/L (<34); CALCIUM LEVEL 9.3 MG/DL (8.3-10.6); CARBON DIOXIDE LEVEL 26.0 MMOL/L (20-31); CHLORIDE LEVEL 104.0 MMOL/L (98-107); CREATININE FOR GFR 0.85 MG/DL (0.55-1.30); GLOMERULAR FILTRATION RATE 76.0 (>45); POTASSIUM SERUM 3.4 MMOL/L (3.5-5.1); SODIUM LEVEL 145.0 MMOL/L (136-145)
[2025-06-11] MEDS ORDERED: MECL-86 PO (12:32)
[2025-06-11] MEDS ORDERED: HOME MED LIST COMPLETE! XX SCH (12:35)
[2025-06-11] MEDS: MECLIZINE 25 MG TABLET PO ONE (14:14)
[2025-06-11 14:17] VITALS: BP 130/60; TEMP 97.2; O2SAT 98
== END 2025-06-11 14:19 | disposition home or self-care (01) ==
LOC: M ED 09:15
DX: H81.10 Benign paroxysmal vertigo, unspecified ear (principal); E11.9 Type 2 diabetes mellitus without complications; J44.9 Chronic obstructive pulmonary disease, unspecified; K75.81 Nonalcoholic steatohepatitis (NASH); M54.9 Dorsalgia, unspecified; F32.A Depression, unspecified; G43.909 Migraine, unspecified, not intractable, without status migrainosus; N28.89 Other specified disorders of kidney and ureter; Z87.891 Personal history of nicotine dependence; Z79.82 Long term (current) use of aspirin; Z79.899 Other long term (current) drug therapy; Z88.8 Allergy status to other drugs, medicaments and biological substances; Z91.041 Radiographic dye allergy status; Z91.02 Food additives allergy status
CPT/HCPCS: 76700; 80053; 85025; 93005; 96374; 99285; J3360

== ENCOUNTER → 2025-06-11 | Outpatient (CLI) | payer MEDICARE, OTHER ==
[~2025-06-11] MED LIST changes: +ESTR1CRE VA; +MECL-209 PO; +MECL-86 PO; +TIZA10TA PO; +VENL37.598 PO
== END ==
LOC: M WHC 06:41
PROVIDERS: ATTEND Nurse Practitioner Family
DX: N28.9 Disorder of kidney and ureter, unspecified (principal); K76.0 Fatty (change of) liver, not elsewhere classified; N20.0 Calculus of kidney

== ENCOUNTER → 2025-06-26 | Outpatient (CLI) | payer MEDICARE, OTHER ==
[~2025-06-26] MED LIST changes: +MECL-86 PO
[2025-06-26 16:22] LABS: RHEUMATOID FACTOR QUANT 4.4 IU/ML (<14)
[2025-06-26 16:24] LABS: VITAMIN B12 LEVEL 360.0 PG/ML (211-911)
== END ==
LOC: M PLALAB 13:39
PROVIDERS: ATTEND Psychiatry & Neurology Neurology
DX: R42 Dizziness and giddiness (principal); G62.9 Polyneuropathy, unspecified

== ENCOUNTER → 2025-07-24 | Outpatient (CLI) | payer MEDICARE, OTHER | LOC: M PLAIMG 12:40 | PROVIDERS: ATTEND Nurse Practitioner Family | DX: R07.89 Other chest pain (principal); I34.0 Nonrheumatic mitral (valve) insufficiency ==

== ENCOUNTER → 2025-08-08 | Outpatient (CLI) | payer MEDICARE, OTHER ==
[~2025-08-08] MED LIST changes: +ECOT81TA5 PO; -EZET10TA21 PO; +EZET10TA57 PO; +LANTINJ4 SQ; +TRUL0.5I SC
[2025-08-08 15:54] LABS: ESTIMATED AVERAGE GLUCOSE 146.0 MG/DL (60-110)
== END ==
LOC: M PLALAB 13:04
PROVIDERS: ATTEND Student in an Organized Health Care Education/Training Program
DX: E11.9 Type 2 diabetes mellitus without complications (principal)

== ENCOUNTER 2025-08-20 11:33 | Day surgery (SDC) | payer MEDICARE, OTHER ==
[~2025-08-20] VITALS: Ht 162.6 cm; Wt 85.1 kg
[~2025-08-20 11:33] MED LIST changes: +LIDOCAINE 2% 100 MG/5 ML SDV (FOR ANES.) As Ordered ONE
[2025-08-20] MEDS: MIDAZOLAM INJ 2 MG/2 ML VIAL IV STA (12:16)
[2025-08-20] MEDS ORDERED: PHENYLephrine 500MCG 5ML (100MCG/ML) SYRINGE As Ordered ONE (13:00)
[2025-08-20 13:09] VITALS: TEMP 97
[2025-08-20 13:34] VITALS: BP 108/58; O2SAT 96
== END 2025-08-20 13:35 | disposition home or self-care (01) ==
LOC: M OPP 11:33
PROVIDERS: ATTEND Internal Medicine Gastroenterology
DX: D12.6 Benign neoplasm of colon, unspecified (principal); K64.1 Second degree hemorrhoids; R19.7 Diarrhea, unspecified; R12 Heartburn; F17.210 Nicotine dependence, cigarettes, uncomplicated; Z86.73 Personal history of transient ischemic attack (TIA), and cerebral infarction without residual deficits; G47.30 Sleep apnea, unspecified; Z88.1 Allergy status to other antibiotic agents; Z91.02 Food additives allergy status; Z91.041 Radiographic dye allergy status; Z79.82 Long term (current) use of aspirin; Z79.891 Long term (current) use of opiate analgesic; Z79.4 Long term (current) use of insulin; Z79.85 Long-term (current) use of injectable non-insulin antidiabetic drugs; Z79.899 Other long term (current) drug therapy; J44.9 Chronic obstructive pulmonary disease, unspecified
CPT/HCPCS: 43239; 45380; 45385; 88305; J2250; J2371; J3010

== ENCOUNTER → 2025-09-25 | Outpatient (CLI) | payer MEDICARE, OTHER ==
[~2025-09-25] MED LIST changes: -LIDOCAINE 2% 100 MG/5 ML SDV (FOR ANES.) As Ordered ONE
[2025-09-25 17:32] LABS: BASO # 0.1 10^3/uL (0.0-0.2); BASO % 0.6 % (0.0-1.0); EOS # 0.0 10^3/uL (0.0-0.5); EOS % 0.3 % (0.0-3.0); LYMPH # 3.6 10^3/uL (1.5-5.0); LYMPH % 28.6 % (24.0-44.0); MONO # 0.7 10^3/uL (0.0-0.8); MONO % 5.5 % (2.0-8.0); NEUTROPHILS # 8.1 10^3/uL (1.5-8.5); NEUTROPHILS % 64.7 % (36.0-66.0); PLATELET COUNT, AUTOMATED 219 10^3/uL (150-450)
[2025-09-25 17:39] LABS: ALT/SGPT 17.0 U/L (7.0-40); AST/SGOT 22.0 U/L (<34); CALCIUM LEVEL 9.1 MG/DL (8.3-10.6); CARBON DIOXIDE LEVEL 26.0 MMOL/L (20-31); CHLORIDE LEVEL 105.0 MMOL/L (98-107); CREATININE FOR GFR 0.84 MG/DL (0.55-1.30); GLOMERULAR FILTRATION RATE 77.1 (>45); MAGNESIUM LEVEL 1.9 MG/DL (1.8-2.4); POTASSIUM SERUM 3.8 MMOL/L (3.5-5.1); SODIUM LEVEL 141.0 MMOL/L (136-145)
== END ==
LOC: M PLALAB 14:43
PROVIDERS: ATTEND Student in an Organized Health Care Education/Training Program
DX: R25.2 Cramp and spasm (principal)

== ENCOUNTER → 2025-09-25 | Outpatient (CLI) | payer MEDICARE, OTHER ==
[2025-09-25 17:09] LABS: INR 0.96
[2025-09-25 17:33] LABS: PLATELET COUNT, AUTOMATED 230 10^3/uL (150-450)
[2025-09-25 17:39] LABS: ALT/SGPT 17.0 U/L (7.0-40); AST/SGOT 25.0 U/L (<34); CALCIUM LEVEL 9.1 MG/DL (8.3-10.6); CARBON DIOXIDE LEVEL 26.0 MMOL/L (20-31); CHLORIDE LEVEL 105.0 MMOL/L (98-107); CREATININE FOR GFR 0.85 MG/DL (0.55-1.30); GLOMERULAR FILTRATION RATE 76.0 (>45); POTASSIUM SERUM 3.8 MMOL/L (3.5-5.1); SODIUM LEVEL 142.0 MMOL/L (136-145)
== END ==
LOC: M PLAIMG 14:39
PROVIDERS: ATTEND Urology
DX: Z01.818 Encounter for other preprocedural examination (principal); N28.89 Other specified disorders of kidney and ureter

== ENCOUNTER → 2025-09-26 | Outpatient (REF) | payer MEDICARE, OTHER ==
[~2025-09-26] MED LIST changes: +ATOG60TA PO
[2025-09-26 13:30] LABS: INR 0.98
== END ==
LOC: M SFHCPLAZ 11:26
PROVIDERS: ATTEND Family Medicine
DX: Z01.818 Encounter for other preprocedural examination (principal)

== ENCOUNTER 2025-10-11 06:00 | Day surgery (SDC) | payer MEDICARE, OTHER ==
[2025-10-10] MEDS: traMADol 50 MG TAB PO ONE (15:54)
[2025-10-11] VITALS (7 sets, daily range): BP systolic 95–111; BP diastolic 46–56; TEMP 97–97.7; O2SAT 92–97
[~2025-10-11] VITALS: Ht 162.6 cm; Wt 64.5 kg
[~2025-10-11 06:00] MED LIST changes: +HYDROMORPHONE HCL 0.5 MG/0.5 ML SYRINGE IV PRN; +LR 1,000 ML IV SCH; +ONDANSETRON 4MG/2ML VIAL IV PRN
[2025-10-11] MEDS ORDERED: KETOROLAC 30 MG/ML 1 ML VIAL As Ordered ONE (07:13)
[2025-10-11] MEDS ORDERED: dexAMETHasone 4 MG/ML 1 ML VIAL As Ordered ONE (07:13)
[2025-10-11] MEDS ORDERED: ONDANSETRON 4MG/2ML VIAL As Ordered ONE (07:13)
[2025-10-11] MEDS ORDERED: ROCURONIUM BROMIDE 50MG/5ML VIAL As Ordered ONE (07:13)
[2025-10-11] MEDS ORDERED: LIDOCAINE 2% 100 MG/5 ML SDV (FOR ANES.) As Ordered ONE (07:13)
[2025-10-11] MEDS ORDERED: HYDROmorphone HCL 2 MG/ML 1 ML VIAL As Ordered ONE (07:15)
[2025-10-11] MEDS ORDERED: MIDAZOLAM INJ 2 MG/2 ML VIAL As Ordered ONE (07:15)
[2025-10-11] MEDS: GABAPENTIN 300 MG CAP PO ONE (07:15)
[2025-10-11] MEDS: SCOPOLAMINE 1MG TRANSDERMAL PATCH TOP ONE (07:25)
[2025-10-11] MEDS ORDERED: GLUCAGON INJ 1 MG VIAL SC PRN (07:30)
[2025-10-11] MEDS ORDERED: ACETAMINOPHEN 325 MG TAB PO PRN (07:30)
[2025-10-11] MEDS ORDERED: ALBUTEROL 90 MCG/ACT 8 GM HFA INHALER INH PRN (07:30)
[2025-10-11] MEDS ORDERED: GLUCOSE 4 GM CHEW PO PRN (07:30)
[2025-10-11] MEDS ORDERED: ONDANSETRON 4MG/2ML VIAL IV PRN ×2 (07:30→10:45)
[2025-10-11] MEDS ORDERED: DEXTROSE 50% 50 ML SYRINGE IV PRN (07:30)
[2025-10-11] MEDS: ceFAZolin SOD 2 GM IV ONCE IV ONE (07:38)
[2025-10-11] MEDS: FAMOTIDINE 20 MG/2 ML VIAL IVP ONE (08:10)
[2025-10-11] MEDS: FAMOTIDINE 20 MG/2 ML VIAL As Ordered ONE (08:10)
[2025-10-11] MEDS ORDERED: hydrALAZINE 20 MG/ML 1 ML VIAL As Ordered ONE (08:35)
[2025-10-11] MEDS ORDERED: ACETAMINOPHEN 1000MG/100ML IV BAG As Ordered ONE (08:36)
[2025-10-11] MEDS ORDERED: LABETALOL 100 MG/20 ML VIAL As Ordered ONE (08:47)
[2025-10-11] MEDS: MANNITOL 25% 12.5 GM/50 ML VIAL As Ordered ONE (09:23)
[2025-10-11] MEDS ORDERED: SUGAMMADEX SODIUM 200 MG/2 ML VIAL As Ordered ONE (09:51)
[2025-10-11] MEDS: LIDOCAINE 1% SDV 30 ML VIAL As Ordered ONE (10:43)
[2025-10-11] MEDS ORDERED: HYDROMORPHONE HCL 0.5 MG/0.5 ML SYRINGE IV PRN ×3 (10:45→14:55)
[2025-10-11] MEDS ORDERED: MEPERIDINE 25 MG/ML 1 ML VIAL IV PRN (10:45)
[2025-10-11] MEDS ORDERED: INSULIN LISPRO (NovoLOG) PER UNIT SC PRN (11:05)
[2025-10-11 11:27] LABS: PLATELET COUNT, AUTOMATED 198 10^3/uL (150-450)
[2025-10-11 12:05] LABS: CALCIUM LEVEL 7.9 MG/DL (8.3-10.6); CARBON DIOXIDE LEVEL 25.0 MMOL/L (20-31); CHLORIDE LEVEL 105.0 MMOL/L (98-107); CREATININE FOR GFR 0.75 MG/DL (0.55-1.30); GLOMERULAR FILTRATION RATE 88.3 (>45); POTASSIUM SERUM 3.9 MMOL/L (3.5-5.1); SODIUM LEVEL 138.0 MMOL/L (136-145)
[2025-10-11] MEDS ORDERED: LIDOCAINE 1% SDV 5 ML VIAL PN ONE (14:55)
[2025-10-11] MEDS ORDERED: BUPivacaine LIPOSOME/PF 133 MG/10 ML VIAL PN ONE (14:55)
[2025-10-11] MEDS ORDERED: LR 1,000 ML IV SCH (14:55)
[2025-10-11] MEDS ORDERED: SCOPOLAMINE 1MG TRANSDERMAL PATCH TOP ONE (14:55)
[2025-10-11] MEDS ORDERED: FAMOTIDINE 20 MG/2 ML VIAL IVP ONE (14:55)
[2025-10-11] MEDS ORDERED: MORPHINE 2 MG/ML 1 ML VIAL IV PRN (14:55)
[2025-10-11] MEDS ORDERED: MIDAZOLAM INJ 2 MG/2 ML VIAL IV PRN (14:55)
[2025-10-11] MEDS ORDERED: GABAPENTIN 300 MG CAP PO ONE (14:55)
[2025-10-11] MEDS: INSULIN LISPRO (NovoLOG) PER UNIT SC SCH ×2 (15:54→21:00)
[2025-10-11] MEDS: PANTOPRAZOLE 40MG TAB PO SCH (16:54)
[2025-10-11] MEDS: ceFAZolin SOD 1 GM in DEXTROSE 5% (D5W) ADV/MINI-BAG 50 ML IV SCH (16:55)
[2025-10-11] MEDS: NS (Normal Saline) 0.9% 1,000 ML IV SCH (16:55)
[2025-10-11] MEDS: PERCOCET 5MG/325MG TAB PO PRN (19:30)
[2025-10-11] MEDS: VENLAFAXINE **XR** 75MG CAPSULE PO SCH (21:00)
[2025-10-11] MEDS: FAMOTIDINE 20 MG TAB PO SCH (21:19)
[2025-10-11] MEDS: DOCUSATE SODIUM 100 MG CAPSULE PO SCH (21:19)
[2025-10-11] MEDS: TOPIRAMATE 100 MG TAB PO SCH (21:31)
[2025-10-12 00:18] VITALS: BP 101/50; TEMP 97.1; O2SAT 94
[2025-10-12 04:11] VITALS: BP 102/46; TEMP 97.4; O2SAT 96
[2025-10-12 05:37] VITALS: BP 108/58
[2025-10-12 06:22] LABS: PLATELET COUNT, AUTOMATED 157 10^3/uL (150-450)
[2025-10-12 06:35] LABS: CALCIUM LEVEL 8.1 MG/DL (8.3-10.6); CARBON DIOXIDE LEVEL 26.0 MMOL/L (20-31); CHLORIDE LEVEL 109.0 MMOL/L (98-107); CREATININE FOR GFR 0.89 MG/DL (0.55-1.30); GLOMERULAR FILTRATION RATE 71.9 (>45); POTASSIUM SERUM 4.0 MMOL/L (3.5-5.1); SODIUM LEVEL 143.0 MMOL/L (136-145)
[2025-10-12 07:45] VITALS: BP 103/50; TEMP 97.1; O2SAT 94
[2025-10-12] MEDS: ASPIRIN 81 MG ENTERIC TABLET PO SCH (08:43)
[2025-10-12] MEDS: POTASSIUM CHLORIDE 10MEQ SR TABLET PO SCH (08:44)
[2025-10-12] MEDS ORDERED: COLA100C5 PO (10:20)
[2025-10-12 12:07] LABS: PLATELET COUNT, AUTOMATED 158 10^3/uL (150-450)
[2025-10-12 13:05] VITALS: BP 109/79; TEMP 98.7; O2SAT 96
[2025-10-12] MEDS: PERCOCET 5MG/325MG TAB PO PRN (13:31)
[2025-10-12] MEDS ORDERED: PERCOCET PO (13:40)
== END 2025-10-12 16:49 | disposition home or self-care (01) ==
LOC: M SDC 06:00 → M MS4PR 15:41 → M SDC 10-12 16:49
PROVIDERS: ATTEND Urology
DX: C64.1 Malignant neoplasm of right kidney, except renal pelvis (principal); E11.9 Type 2 diabetes mellitus without complications; E78.5 Hyperlipidemia, unspecified; K57.92 Diverticulitis of intestine, part unspecified, without perforation or abscess without bleeding; K44.9 Diaphragmatic hernia without obstruction or gangrene; K21.9 Gastro-esophageal reflux disease without esophagitis; G43.909 Migraine, unspecified, not intractable, without status migrainosus; Z86.73 Personal history of transient ischemic attack (TIA), and cerebral infarction without residual deficits; J44.9 Chronic obstructive pulmonary disease, unspecified; F17.210 Nicotine dependence, cigarettes, uncomplicated; G47.33 Obstructive sleep apnea (adult) (pediatric); Z79.51 Long term (current) use of inhaled steroids; Z91.041 Radiographic dye allergy status; Z88.1 Allergy status to other antibiotic agents; Z88.5 Allergy status to narcotic agent; Z79.4 Long term (current) use of insulin; Z79.899 Other long term (current) drug therapy; F41.9 Anxiety disorder, unspecified; F32.A Depression, unspecified
CPT/HCPCS: 36415; 50543; 80048; 85027; 86850; 86900; 86901; 88307; 96361; 96365; 96366; J0131; J0360; J0665; J0688; J0690; J1100; J1171; J1308; J1815; J1885; J1920; J2151; J2250; J2405; J3010; S2900

== ENCOUNTER → 2025-10-31 | Outpatient (CLI) | payer MEDICARE, OTHER ==
[~2025-10-31] MED LIST changes: +BENA25CA4 PO; +COLA100C5 PO; +HYDR-3719; -HYDROMORPHONE HCL 0.5 MG/0.5 ML SYRINGE IV PRN; -LR 1,000 ML IV SCH; +NITR-67 PO; -ONDANSETRON 4MG/2ML VIAL IV PRN; +PRED50TA57 PO; +RESM80TA PO
[2025-10-31 14:53] LABS: PLATELET COUNT, AUTOMATED 237 10^3/uL (150-450)
[2025-10-31 15:18] LABS: INR 0.95
[2025-10-31 15:29] LABS: ALT/SGPT 14.0 U/L (7.0-40); AST/SGOT 20.0 U/L (<34); CALCIUM LEVEL 8.9 MG/DL (8.3-10.6); CARBON DIOXIDE LEVEL 26.0 MMOL/L (20-31); CHLORIDE LEVEL 103.0 MMOL/L (98-107); CREATININE FOR GFR 0.84 MG/DL (0.55-1.30); GLOMERULAR FILTRATION RATE 77.1 (>45); POTASSIUM SERUM 3.9 MMOL/L (3.5-5.1); SODIUM LEVEL 139.0 MMOL/L (136-145)
== END ==
LOC: M PLALAB 13:34
PROVIDERS: ATTEND Urology
DX: Z01.818 Encounter for other preprocedural examination (principal); N28.89 Other specified disorders of kidney and ureter

== ENCOUNTER → 2025-10-31 | Outpatient (CLI) | payer MEDICARE, OTHER | LOC: M WHC 13:41 | PROVIDERS: ATTEND Student in an Organized Health Care Education/Training Program | DX: Z12.31 Encounter for screening mammogram for malignant neoplasm of breast (principal); Z13.820 Encounter for screening for osteoporosis; M85.852 Other specified disorders of bone density and structure, left thigh; M85.851 Other specified disorders of bone density and structure, right thigh; R92.323 Mammographic fibroglandular density, bilateral breasts; N28.89 Other specified disorders of kidney and ureter; Z01.818 Encounter for other preprocedural examination | CPT/HCPCS: 36415; 76642; 77066; 77080; 80053; 85027; 85610; 85730; G0279 ==

== ENCOUNTER → 2025-11-20 | Outpatient (CLI) | payer MEDICARE, OTHER ==
[~2025-11-20] MED LIST changes: +ISOVUE-370 76% 100 ML VIAL As Ordered ONE
== END ==
LOC: M RAD 13:53
PROVIDERS: ATTEND Student in an Organized Health Care Education/Training Program
DX: N28.89 Other specified disorders of kidney and ureter (principal); D35.02 Benign neoplasm of left adrenal gland
CPT/HCPCS: 71260; 74177; Q9967